=== PATIENT | male | born 1955 | race Caucasian/White ===

== ENCOUNTER 2019-07-15 08:42 | Outpatient (CLI) | payer MEDICARE, BC, SELFPAY ==
[2019-07-15 11:20] LABS: Hemoglobin A1C 6.1 % (4.5-6.2)
== END 2019-07-15 09:02 ==
PROVIDERS: PCP Family Medicine; Visit Provider Family Medicine
DX: R73.01 Impaired fasting glucose (principal)
CPT/HCPCS: 36415; 83036

== ENCOUNTER 2019-08-07 11:03 | Outpatient (CLI) | payer MEDICARE, BC, SELFPAY ==
--- NOTE | 2019-08-07 10:52 | DI.RAD_ITS ---
EXAM: XR KNEE LT 3V AP,LAT,VIKKI CLINICAL HISTORY: eval L knee pain and swelling TECHNIQUE: Three views were obtained. COMPARISON: RIGHT KNEE 3 VIEWS from 08/28/2016 FINDINGS: There is a probable knee joint effusion. Cartilaginous joint spaces appear fairly well maintained. Minimal marginal osteophyte formation of the inferior patella noted. No other significant bony abnor mality seen. IMPRESSION: Minimal degenerative changes, probable joint effusion.
== END 2019-08-07 11:23 ==
PROVIDERS: PCP Family Medicine; Referring Provider Family Medicine; Visit Provider Student in an Organized Health Care Education/Training Program
DX: M25.562 Pain in left knee (principal); M25.462 Effusion, left knee; M17.12 Unilateral primary osteoarthritis, left knee; M23.92 Unspecified internal derangement of left knee
CPT/HCPCS: 20610; 73562; 99214; J1040

== ENCOUNTER 2019-08-07 12:15 | Outpatient (REF) | payer MEDICARE, BC, SELFPAY ==
[2019-08-07 14:28] LABS: Source L KNEE
[2019-08-07 14:29] LABS: Clarity CLEAR
[2019-08-07 14:30] LABS: Mononuclear Cells 98 % (0-0); Nucleated Cells 785 /MM3 (0-0); Polynuclear Cells 2 % (0-0)
== END 2019-08-07 12:35 ==
LOC: LBN 12:15
PROVIDERS: PCP Family Medicine; Visit Provider Student in an Organized Health Care Education/Training Program
DX: M25.462 Effusion, left knee (principal)
CPT/HCPCS: 87070; 87205; 89051; 89060

== ENCOUNTER → 2019-12-25 07:59 | Outpatient (BNVA) | payer MEDICARE, BC, SELFPAY | PROVIDERS: PCP Family Medicine; Referring Provider Family Medicine; Visit Provider Student in an Organized Health Care Education/Training Program | DX: M23.92 Unspecified internal derangement of left knee (principal) | CPT/HCPCS: 99214 ==

== ENCOUNTER 2019-12-30 02:29 | Outpatient (CLI) | payer MEDICARE, BC, SELFPAY ==
--- NOTE | 2019-12-30 06:45 | DI.MRI_ITS ---
EXAM: MR LOWER JOINT LT WO CLINICAL HISTORY: internal derangement lt knee, m23.92., PAIN, SWELLING TECHNIQUE: Multiplanar multisequence MRI was performed. COMPARISON: No exams were available for comparison FINDINGS: MR examination of the knee was performed according to the usual protocol. There is a moderate-sized knee joint effusion. There is increased subcutaneous fat signal over the a nterior portion of the knee consistent with nonspecific edema. Bones: There is mild diffuse abnormal signal in the posterior aspect of the medial femoral condyle an d also in the anterior aspect of the medial femoral condyle centrally. Mildly abnormal signal noted in medial tibial plateau. These findings may represent degenerative or stress related process. No f racture identified. Extensor mechanism: Patella is mildly subluxed laterally. Normal bony signal in the patella except f or minimally abnormal signal adjacent to quadriceps insertion. Quadriceps and patellar tendon show e ssentially normal signal. There are cartilage defects of the patella near the apex and also involving the inferior medial ortiz lar facet. Mild generalized articular cartilage thinning of patellar and trochlear cartilage noted. Patellar retinaculum shows normal signal. Medial tibiofemoral joint: There is an articular cartilage defect of the medial femoral condyle poste riorly measuring up to about 8 millimeters in diameter with minimal exposed bony cortex. There is lombardo bchondral signal abnormality. There is a posterior horn medial meniscal tear which is mildly displac ed, no evidence of a bucket-handle tear. Moderate medial meniscal degeneration noted throughout invo lving the medial meniscus. Lateral tibiofemoral joint: Unremarkable appearance of articular cartilage. Normal lateral meniscus and attachments. No posterolateral corner abnormality. Collateral ligaments: No significant collateral ligament tear. Cruciate ligaments: No cruciate ligament tear. Tendons: No significant tendinopathy or tendon tear. IMPRESSION: Degenerative articular cartilage changes involving patella and medial femoral condyle, please see abo ve discussion. Medial meniscal tear, posterior horn, mildly displaced. DATA REPOSITORY:
== END 2019-12-30 02:49 ==
PROVIDERS: PCP Family Medicine; Visit Provider Student in an Organized Health Care Education/Training Program
DX: M25.562 Pain in left knee (principal); M23.92 Unspecified internal derangement of left knee; M25.462 Effusion, left knee; S83.242A Other tear of medial meniscus, current injury, left knee, initial encounter
CPT/HCPCS: 73721

== ENCOUNTER 2020-07-29 09:37 | Outpatient (CLI) | payer MEDICARE, BC, SELFPAY ==
--- NOTE | 2020-07-29 09:15 | DI.RAD_ITS ---
EXAM: XR KNEE RT 4V AP,LAT,VIKKI,PAT CLINICAL HISTORY: pain in knee. TECHNIQUE: 2D digital imaging was performed. COMPARISON: CR XR KNEE LT 3V AP,LAT,VIKKI from 08/07/2019 FINDINGS: Three views of the right knee reveal no evidence of fracture but there is a significant joint effusio n signifying internal derangement. There are moderate-advanced degenerative narrowing changes in the medial compartment without obvious marginal osteophytes. Lateral compartment exhibits normal height . There are mild degenerative changes also evident in the patellofemoral compartment. Vascular calc ification is noted in the runoff arteries of the calf IMPRESSION: Significant degenerative changes. Also joint effusion. DATA REPOSITORY: RADIATION DOSE DELIVERED:
== END 2020-07-29 09:57 ==
PROVIDERS: PCP Family Medicine; Referring Provider Family Medicine; Visit Provider Student in an Organized Health Care Education/Training Program
DX: M17.11 Unilateral primary osteoarthritis, right knee (principal); M25.461 Effusion, right knee; M23.92 Unspecified internal derangement of left knee; Z79.899 Other long term (current) drug therapy
CPT/HCPCS: 99213; 73564

== ENCOUNTER 2020-08-18 04:26 | Outpatient (CLI) | payer MEDICARE, BC, SELFPAY ==
[2020-08-18 10:28] LABS: Hemoglobin A1C 6.3 % (<5.7)
[2020-08-18 10:38] LABS: BUN 14 mg/dL (7-18); Calcium 9.3 mg/dL (8.5-10.1); Calculated LDL 92 mg/dL (<100); Chloride 103 mmol/L (98-107); Cholesterol 171 mg/dL (<200); Glucose 116 mg/dL (74-106); HDL Cholesterol 53 mg/dL (40-60); Potassium 4.3 mmol/L (3.5-5.1); Sodium 140 mmol/L (136-145); Triglyceride 134 mg/dL (<150)
== END 2020-08-18 04:46 ==
PROVIDERS: PCP Family Medicine; Visit Provider Family Medicine
DX: E78.5 Hyperlipidemia, unspecified (principal); E87.1 Hypo-osmolality and hyponatremia; R73.9 Hyperglycemia, unspecified
CPT/HCPCS: 36415; 80048; 80061; 83036

== ENCOUNTER 2020-08-20 02:21 | Outpatient (CLI) | payer MEDICARE, BC, SELFPAY ==
[2020-08-21 16:57] LABS: COVID-19 RT-PCR Result NEGATIVE (Negative)
== END 2020-08-20 02:41 ==
PROVIDERS: PCP Family Medicine; Visit Provider Student in an Organized Health Care Education/Training Program
DX: Z11.52 Encounter for screening for COVID-19 (principal); Z01.818 Encounter for other preprocedural examination
CPT/HCPCS: U0003

== ENCOUNTER 2020-08-24 10:45 | Day surgery (SDC) | payer MEDICARE, BC, SELFPAY ==
[2020-08-24] VITALS (9 sets, daily range): BP systolic 107–162; BP diastolic 59–98; PULSE 58–69; RESP 12–19; TEMP 35.7–36.6; O2SAT 98–100
--- NOTE | 2020-08-24 11:12 | W.PM.DSUDISC ---
Discharge Plan Disposition Patient Disposition: HOME Condition: Good Discharge Details Reason For Visit: Left knee arthroscopy Attending Provider: Delfin Sanchez Primary Care Provider: Monty Canales Home Meds and New Rx's Prescriptions: New hydrocodone-acetaminophen 5-325 mg tablet 1 tab PO Q8H PRN (Reason: pain) Qty: 6 RF: 0 ibuprofen 600 mg tablet 600 mg PO TID PRN (Reason: pain) Qty: 30 RF: 0 acetaminophen 500 mg capsule 1,000 mg PO Q8H PRN PRNQty: 90 RF: 0 Continued Entyvio 300 mg recon soln 300 mg IV Q8W RF: 0 cholecalciferol (vitamin D3) 2,000 unit tablet 2,000 unit PO DAILY RF: 0 pravastatin 20 mg tablet 20 mg PO QPM Qty: 90 RF: 4 hydrochlorothiazide 12.5 mg tablet 12.5 mg PO DAILY Qty: 90 RF: 4 montelukast 10 mg tablet 10 mg PO DAILY Qty: 90 RF: 3 terbinafine HCl 250 mg tablet 250 mg PO DAILY Qty: 30 RF: 0 terbinafine HCl 250 mg tablet 250 mg PO DAILY Qty: 28 RF: 0 Flovent HFA 110 mcg/actuation HFA aerosol inhaler 1 puff inhalation BID RF: 0 No Action acetaminophen [Tylenol Arthritis Pain] 650 mg tablet extended release 1,300 mg PO BID PRN RF: 0 Discharge Instructions Stand Alone Forms: [facility] Knee Arthroscopy Referrals: Delfin Sanchez MD [ [facility] STAFF PHYSICIAN] - Equipment/Supplies: Partial Weight Bearing Crutches Activity:: Activity as Tolerated Remove Dressings/Wound Care:: 72 hours Shower/Bathe:: 72 hours Diet:: As Tolerated Discharge Orders Discharge Orders: Discharge Order (Routine); Ordered 08/24/20 Ordered By: Satish Álvarez DS: Diagnosis Discharge Diagnosis (1) Internal derangement of left knee: Status: Acute
[2020-08-24] MEDS: Lactated Ringers 1,000 ML 80 ML IV (12:08)
[2020-08-24] MEDS: Bupivacaine 0.5% Pres-Free 30 ML VIAL ×2 (13:16→13:55)
[2020-08-24] MEDS: methylPREDNISolone ACETATE 80 MG/ML VIAL (13:16)
--- NOTE | 2020-08-24 14:42 | W.PM.OP ---
Date of service: 08/24/20 Time of Service: 13:43 Operative Note Operative Note DATE OF PROCEDURE: 08/24/20 PRE-OP DIAGNOSIS: Left Knee Medial Meniscus Tear and Right Knee Osteoarthritis POST-OP DIAGNOSIS: other Left Knee Medial and Lateral Meniscus Tear and Right Knee Osteoarthritis PROCEDURE: Right Knee Corticosteroid Injection, Left Knee Arthroscopic Partial Lateral and Medial Menisectomies SURGEON: Delfin Sanchez ANESTHESIA: spinal ESTIMATED BLOOD LOSS: 0 PATHOLOGY: none sent TOURNIQUET TIME: 0 COMPLICATIONS: None Patient was transported to: PACU Patient's condition: stable Indications: I have seen Christiano in clinic for symptoms of a meniscus tear. This was confirmed based on MRI and exam findings. Nonoperative measures were exhausted but disability and pain persisted. I discussed knee arthroscopy with meniscal intervention with the patient. I reviewed the risks of the procedure to include, but not limited to, bleeding, infection, pain, stiffness, damage to nerves or vessels, recurrence, blood clot. Despite these risks, the patient elected to proceed. Findings: A diagnostic arthroscopy was performed with the following findings: Suprapatellar Pouch: Moderate Inflammatory Changes, No loose bodies Medial Compartment: Complex medial meniscal tear, Tear extends just medial to the root with small peripheral attachment to root intact, Grade II/III chondromalacia of the femur and Grade I of the tibia, No loose bodies Notch: ACL and PCL were intact Lateral Compartment: Complex fraying at the meniscal root, No significant chondromalacia or signs of arthritis, No loose bodies Patellofemoral Compartment: Grade II chondromalacia, No apparent patellar maltracking Procedure Description: Gustavo was greeted in the preoperative holding area where the correct side was identified and marked. The consent was reviewed with the patient and signed. The history and physical was updated. All questions were answered. Gustavo was taken back to the operating room. The patient was placed into the supine position on the operating room table. A nonsterile tourniquet was placed high onto the leg but not used. All bony prominences were well padded. Prophylactic antibiotics in the form of Cefazolin were administered. A timeout to confirm correct identity, side and site, procedure, allergies, anesthesia, and medical concerns was performed. The superolateral border of the patella was identified and marked. The skin was prepped with alcohol. The knee joint was entered without difficulty and the injection, consisting of 8cc of 0.5% Bupivicaine and 80mg of DepoMedrol, was injected without resistance. The left leg was then prepped with Chloraprep and draped in a standard fashion with arthroscopic extremity drape.The leg was placed into a pneumatic leg fisher, [id number]. A standard lateral portal was made at the lateral border of the patella tendon in line with the inferior pole of the patella, soft spot. The skin and deep tissue was incised sharply and the blunt trochar was inserted atraumatically. A diagnostic arthroscopy was performed and the findings are listed above. The suprapatellar pouch had moderate inflammatory disease. The patellofemoral articulation showed Grade II chondromalacia as well as good tracking. The lateral gutter had no loose bodies and the medial gutter had no loose bodies. The knee was brought into some valgus stress in extension to open the medial compartment. A medial portal was made, localized by a spinal needle. The portal was created with an #11 blade through skin and capsule under direct visualization avoiding any meniscal injury. A probe was then inserted into the medial compartment. The medial compartment was fully inspected. The chondral surface of the tibia showed Grade I/II chondromalacia and the surface of the femur showed Grade II/III chondromalacia, mostly centrally. The medial meniscus had a complex tear witha primary radial component just medial to the posterior meniscal root attachment. This involved the central 2/3 of the meniscus with some peripheral fibers still attached between the horn and the root. After evaluation, the meniscus was debrided down to a stable base using a series of biters and arthroscopic avery. It was probed afterwards to confirm that the tear had been removed and the meniscus was stable. The notch was then inspected which showed an intact ACL and an intact PCL. The leg was then brought into a figure of 4 position. The lateral compartment was fully inspected with the arthroscope and a probe. The chondral surface of the lateral femur showed no significant chondromalacia. The chondral surface of the lateral tibia showed no significant chondromalacia. The lateral meniscus had some fraying and complex tearing at the root. It did not destabilize the remainder of the meniscus. After evaluation, the meniscus was debrided down to a stable base using a series of biters and arthroscopic avery. It was probed afterwards to confirm that the tear had been removed and the meniscus was stable. The arthroscope was brought back into the suprapatellar pouch and the leg was in full extension. The knee was thoroughly irrigated with the arthroscopic fluid on high flow and pressure. Inflow was stopped and excess fluid was removed. The wounds were closed with 4-0 Nylon. They were dressed with Xeroform, 4x4 gauze, ABD pad, Kerlix and an ANDER wrap. A cryo-cuff was applied. The patient tolerated the procedure well and was returned to the Same Day Surgery area in a stable condition suffering no known complication.
== END 2020-08-24 16:30 | disposition home or self-care (01) ==
PROVIDERS: PCP Family Medicine; Visit Provider Student in an Organized Health Care Education/Training Program
PROC: (CPT 29870; principal; 2020-08-24 13:45)
PROC: (CPT 29880; 2020-08-24 13:45)
DX: S83.232A Complex tear of medial meniscus, current injury, left knee, initial encounter (principal); S83.272A Complex tear of lateral meniscus, current injury, left knee, initial encounter; M17.11 Unilateral primary osteoarthritis, right knee; X58.XXXA Exposure to other specified factors, initial encounter; M94.262 Chondromalacia, left knee
CPT/HCPCS: 29880; 20610; J0690; J1040; J1885; J2001; J2250; J2405

== ENCOUNTER → 2020-09-09 09:30 | Outpatient (BNVA) | payer MEDICARE, BC, SELFPAY | PROVIDERS: PCP Family Medicine; Referring Provider Family Medicine; Visit Provider Student in an Organized Health Care Education/Training Program | DX: Z47.89 Encounter for other orthopedic aftercare (principal) ==

== ENCOUNTER → 2021-01-04 07:57 | Outpatient (BNVA) | payer MEDICARE, BC, SELFPAY | PROVIDERS: PCP Family Medicine; Referring Provider Family Medicine; Visit Provider Physician Assistant | DX: M17.11 Unilateral primary osteoarthritis, right knee (principal) | CPT/HCPCS: 20610; J1040 ==

== ENCOUNTER 2021-02-21 10:22 | Outpatient (CLI) | payer MEDICARE, BC, SELFPAY ==
--- NOTE | 2021-02-21 10:00 | DI.RAD_ITS ---
Exam(s) XR HIP RT COMPLETE AP PELVIS EXAM: XR HIP RT COMPLETE AP PELVIS CLINICAL HISTORY: right hip pain. TECHNIQUE: 2D digital imaging was performed. COMPARISON: No exams were available for comparison FINDINGS: No evidence of pelvic nor hip fracture. Mild degenerative changes in the left hip are noted. Minima l degenerative changes right hip noted. No osseous. IMPRESSION: DATA REPOSITORY: RADIATION DOSE DELIVERED:
== END 2021-02-21 10:23 | disposition home or self-care (01) ==
LOC: DIORS 10:22
PROVIDERS: PCP Family Medicine; Referring Provider Family Medicine; Visit Provider Student in an Organized Health Care Education/Training Program
DX: M25.551 Pain in right hip (principal); M17.11 Unilateral primary osteoarthritis, right knee; M16.11 Unilateral primary osteoarthritis, right hip
CPT/HCPCS: 99213; 73502

== ENCOUNTER 2021-04-05 10:20 | Outpatient (CLI) | payer MEDICARE, BC, SELFPAY ==
--- NOTE | 2021-04-05 09:30 | DI.RAD_ITS ---
Exam(s) XR STANDING ALIGNMENT EXAM: XR STANDING ALIGNMENT CLINICAL HISTORY: preop. TECHNIQUE: 2D digital imaging was performed. Standing AP views were performed from the pelvis throu gh the ankles. COMPARISON: No exams were available for comparison FINDINGS: BONES: No acute fracture is present. No bony destructive lesion is seen. JOINTS: Knees: Severe degenerative changes medial femoral tibial joint right knee causing mild varus angulation.. Mild degenerative changes left knee. The ankle and hip joints are unremarkable. SOFT TISSUE: Normal. IMPRESSION: Severe degenerative changes medial femoral tibial joint right knee. No significant leg length discre pancy. DATA REPOSITORY: RADIATION DOSE DELIVERED:
== END 2021-04-05 10:21 | disposition home or self-care (01) ==
LOC: DIORS 10:20
PROVIDERS: PCP Family Medicine; Referring Provider Family Medicine; Visit Provider Physician Assistant Surgical
DX: M16.11 Unilateral primary osteoarthritis, right hip (principal); Z01.818 Encounter for other preprocedural examination; M17.11 Unilateral primary osteoarthritis, right knee
CPT/HCPCS: 77073

== ENCOUNTER 2021-04-11 03:39 | Outpatient (CLI) | payer MEDICARE, BC, SELFPAY ==
[2021-04-11 10:23] LABS: Source Nasal/Nares
[2021-04-11 12:50] LABS: COVID-19 PCR Negative (Negative)
== END 2021-04-11 03:40 | disposition home or self-care (01) ==
LOC: LBO 03:39
PROVIDERS: PCP Family Medicine; Visit Provider Student in an Organized Health Care Education/Training Program
DX: Z20.822 Contact with and (suspected) exposure to COVID-19 (principal); Z01.818 Encounter for other preprocedural examination
CPT/HCPCS: 36415; 80048; 85027; 87635

== ENCOUNTER 2021-04-11 04:08 | Outpatient (CLI) | payer MEDICARE, BC, SELFPAY ==
[2021-04-11 08:21] LABS: HCT 44.6 % (40.0-50.0); HGB 14.6 g/dL (13.5-17.5); MCH 29.3 pg (27.0-33.0); MCHC 32.7 % (32.0-36.0); MCV 89.6 fL (80-95); MPV 8.8 fL (8.0-11.0); Platelet Count 176 10^3/uL (130-400); RBC 4.98 10^6/uL (4.36-5.78); RDW 12.5 % (11.8-14.1); RDW-SD 41.1 fL; WBC 5.83 10^3/uL (4.4-10.8)
[2021-04-11 09:17] LABS: BUN 17 mg/dL (7-18); CREATININE 1.1 mg/dL (0.70-1.30); Calcium 9.1 mg/dL (8.5-10.1); Chloride 102 mmol/L (98-107); Glucose 179 mg/dL (74-106); Potassium 3.9 mmol/L (3.5-5.1); Sodium 140 mmol/L (136-145)
== END 2021-04-11 04:09 | disposition home or self-care (01) ==
LOC: LBO 04:09
PROVIDERS: PCP Family Medicine; Visit Provider Student in an Organized Health Care Education/Training Program
DX: M25.551 Pain in right hip (principal); M16.11 Unilateral primary osteoarthritis, right hip; Z01.818 Encounter for other preprocedural examination; Z01.812 Encounter for preprocedural laboratory examination
CPT/HCPCS: 36415; 80048; 85027

== ENCOUNTER 2021-04-12 05:58 | Day surgery (SDC) | payer MEDICARE, BC, SELFPAY ==
[2021-04-12] VITALS (11 sets, daily range): BP systolic 105–159; BP diastolic 56–98; PULSE 49–59; RESP 11–20; TEMP 36.1–36.6; O2SAT 94–99; BMI 31.8
[2021-04-12] MEDS: Celecoxib 200 MG CAP 400 MG PO (06:32)
[2021-04-12] MEDS: Gabapentin 300 MG CAP PO (06:32)
[2021-04-12] MEDS: Acetaminophen 500 MG TAB 1000 MG PO (06:32)
[2021-04-12] MEDS: Lactated Ringers 1,000 ML 80 ML IV (06:40)
--- NOTE | 2021-04-12 07:00 | DI.RAD_ITS ---
Exam(s) XR HIP RT IN OR EXAM: XR HIP RT IN OR CLINICAL HISTORY: RIGHT HIP ARTHRITIS. TECHNIQUE: 2D and realtime digital imaging was performed. COMPARISON: No exams were available for comparison FINDINGS: Fluoroscopy was provided for Dr. Sanchez for guidance with performing a right hip injection. Please see procedure note for details. Fluoro time 5.9 seconds RADIATION DOSE DELIVERED: Ka,r= 0.78 mGy
--- NOTE | 2021-04-12 07:02 | W.ANESPRE ---
General Info Date of Service Date Performed: 04/12/21 Height: 6 ft 2 in Weight: 112.7 kg Body Mass Index (BMI): 31.8 Surgical Procedure: Operation Date: 04/12/21 08:10 Proposed Procedures Side Surgeon p Knee Total Arthroplasty Right Delfin Sanchez MD Meds Allergies and Home Medications Allergies Allergy/AdvReac Type Severity Reaction Status Date / Time Penicillins Allergy Unknown RASH, SOB Verified 04/12/21 06:09 Home Medication Medication Instructions Recorded vedolizumab 300 mg intravenous 300 mg IV Q8W 05/31/18 solution cholecalciferol (vitamin D3) 50 2,000 unit PO DAILY 08/12/19 mcg (2,000 unit) tablet fluticasone propionate 110 1 puff INHALATION BID 07/29/20 mcg/actuation HFA aerosol inhaler hydrochlorothiazide 12.5 mg tablet 12.5 mg PO DAILY #90 tab-cap 08/13/20 montelukast 10 mg tablet 10 mg PO DAILY #90 tab 08/13/20 pravastatin 20 mg tablet 20 mg PO QPM #90 tab-cap 08/13/20 fluticasone propionate 1 spray INTRANASAL DAILY 08/24/20 terbinafine HCl 250 mg tablet 250 mg PO DAILY #30 tab 04/06/21 acetaminophen [Tylenol Extra 500 mg PO Q6H PRN #90 tab 04/12/21 Strength] aspirin 81 mg PO BID #60 tab 04/12/21 celecoxib [Celebrex] 200 mg PO BID #60 cap 04/12/21 gabapentin 300 mg PO QHS #14 cap 04/12/21 oxycodone 5 mg PO Q4H PRN #18 tab 04/12/21 pantoprazole [Protonix] 40 mg PO DAILY #30 tab 04/12/21 Current Visit Medications: Current Medications Generic Name Dose Route Start Last Admin Trade Name Freq PRN Reason Stop Dose Admin Acetaminophen 1,000 mg 04/12/21 06:00 04/12/21 06:32 Acetaminophen 500 Mg Tab PO 04/12/21 16:00 1,000 mg PREOP WALTER Administration Celecoxib 400 mg 04/12/21 06:00 04/12/21 06:32 Celecoxib 200 Mg Cap PO 04/12/21 16:00 400 mg PREOP WALTER Administration Gabapentin 300 mg 04/12/21 06:00 04/12/21 06:32 Gabapentin 300 Mg Cap PO 04/12/21 16:00 300 mg PREOP WALTER Administration Ringer's Solution 1,000 mls @ 80 mls/hr 04/12/21 06:00 04/12/21 06:40 IV 05/11/21 23:59 80 mls/hr INFUSION WALTER Administration Cefazolin Sodium 2,000 mg/ 100 mls @ 200 mls/hr 04/12/21 06:00 Sodium Chloride IVPB 04/12/21 16:00 PREOP WALTER Tranexamic Acid 1,000 mg/ 60 mls @ 360 mls/hr 04/12/21 06:00 Sodium Chloride IVPB 04/12/21 18:00 PREOP WALTER Tranexamic Acid 1,000 mg/ 60 mls @ 360 mls/hr 04/12/21 06:00 Sodium Chloride IVPB 04/12/21 18:00 DIRECTED WALTER IV Miscellaneous Supplies 1 each 04/12/21 06:00 Iv Access IV 05/11/21 23:59 DIRECTED WALTER Sodium Chloride 0 ml 04/12/21 06:00 Normal Saline Flush 10 Ml Syr IV 05/11/21 23:59 PRN PRN Sodium Chloride 0 ml 04/12/21 06:00 Normal Saline 10 Ml Vial IJ 05/11/21 23:59 DIRECTED PRN Sterile Water 0 ml 04/12/21 06:00 Water,Injection,Sterile 10 Ml Vial IJ 05/11/21 23:59 DIRECTED PRN PFSH Active Problems Active Problems: Problem Status Onset Code Heart murmur R01.1 Degenerative joint disease of right hip M16.11 Sensorineural hearing loss of both ears H90.3 Hearing loss H91.90 Stress due to spouse with dementia Z63.79 S/P left knee arthroscopy 08/24/20 Z98.890 Osteoarthritis of right knee M17.11 Family history of Lowery syndrome 07/28/14 Z80.0 Migraine G43.909 Chronic cough R05 Atypical pneumonia J18.9 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 Proctitis 08/27/17 K62.89 Primary osteoarthritis of right knee 08/28/16 M17.11 Lung nodule seen on imaging study 09/29/14 R91.1 Knee pain M25.569 Impaired fasting glucose R73.01 Hyperlipidemia E78.5 Generalized osteoarthrosis M15.9 Generalized osteoarthrosis M15.9 Essential hypertension 06/30/13 I10 Diverticulosis 09/08/14 K57.90 Colitis 07/10/17 K52.9 Medical History Medical History (Updated 04/12/21 @ 07:04 by Mayelin Schroeder RN) Asthma Atypical pneumonia Chronic cough short course of ABic; if not cleared, suggest inhaled steroid (he is leary of po steroid, due to eye disease) Degenerative joint disease of right hip Tobacco Smoking/Tobacco Use Status: Never Passive smoking exposure: Yes Second hand exposure: Yes Alcohol Alcohol Intake: current Alcohol intake frequency: a few times a month Alcohol type: beer Substance Use Substance use: Never Substance use type: does not use Vital Signs and Lab Results Vital Signs Most Recent Vital Signs in EMR: Most Recent Vital Signs Temp Pulse Resp BP Pulse Ox 36.6 C 59 L 20 144/93 H 95 04/12/21 06:13 04/12/21 06:13 04/12/21 06:13 04/12/21 06:13 04/12/21 06:13 Lab Results Blood Type / Crossmatch: No Data to Display Complete Blood Count: White Blood Count 5.83 10^3/uL (4.4-10.8) 04/11/21 08:15 04/11/21 Red Blood Count 4.98 10^6/uL (4.36-5.78) 04/11/21 08:15 04/11/21 Hemoglobin 14.6 g/dL (13.5-17.5) 04/11/21 08:15 04/11/21 Hematocrit 44.6 % (40.0-50.0) 04/11/21 08:15 04/11/21 Platelet Count 176 10^3/uL (130-400) 04/11/21 08:15 04/11/21 Complete Metabolic Panel: Sodium Level 140 mmol/L (136-145) 04/11/21 08:15 04/11/21 Potassium Level 3.9 mmol/L (3.5-5.1) 04/11/21 08:15 04/11/21 Chloride Level 102 mmol/L (98-107) 04/11/21 08:15 04/11/21 Carbon Dioxide Level 27.0 mmol/L (21.0-32.0) 04/11/21 08:15 04/11/21 Blood Urea Nitrogen 17 mg/dL (7-18) 04/11/21 08:15 04/11/21 Creatinine 1.1 mg/dL (0.70-1.30) 04/11/21 08:15 04/11/21 Estimated GFR/1.73 m2 >= 60.00 (mL/min/1.73m2) 04/11/21 08:15 04/11/21 Calcium Level 9.1 mg/dL (8.5-10.1) 04/11/21 08:15 04/11/21 Glucose Level 179 mg/dL (74-106) H 04/11/21 08:15 04/11/21 Liver Function Panel: No Data to Display Coagulation Panel: No Data to Display Cardiac Panel: No Data to Display Arterial Blood Gas: No Data to Display Venous Blood Gas: No Data to Display Pancreas Panel: No Data to Display Thyroid Panel: No Data to Display Infectious Disease: Coronavirus (COVID-19)(PCR) Negative (Negative) 04/11/21 08:20 04/11/21 Coronavirus 2019 Source Nasal/Nares 04/11/21 08:20 04/11/21 Blood Cultures: No Data to Display Toxicology Panel: No Data to Display Anesthesia Assessment and Plan Anesthesia History Personal History: No History of Anesthesia Complications Family History: No Family History of Anesthesia Complications Exercise Tolerance Exercise Tolerance: Metabolic Equivalents>4 Pertinent Negatives Pertinent Negatives: No Symptoms of GERD Cardiac & Pulmonary Exam Cardiac Exam: Normal S1/S2 Heart Sounds and Heart Murmur Present (Benign murmur, chart reviewed, cleared by primary care) Pulmonary Exam: Clear Bilateral Breath Sounds Airway Exam Known Difficult Airway: No Mallampati Class: 2 Mouth Opening: Normal (> 3cm) Thyromental Distance: Greater than 3 cm Neck Range of Motion: Full ROM Neck Circumference: Normal Teeth Condition: Normal Dentition ASA Classification ASA Score: ASA 2 Emergency Case?: No NPO Status NPO Status: NPO Clears >2 hours, Solids >8 hours Anesthesia Plan Resuscitation Status: Full Code Anesthesia Technique: Spinal Anesthesia Airway Planned: Natural Airway Pain Management: Surgeon and patient request nerve block Monitors Used: Standard Monitors
--- NOTE | 2021-04-12 07:36 | W.PM.DSUDISC ---
Documented by User: LISSA Burkett 04/12/21 07:40 Discharge Plan Disposition Patient Disposition: HOME Condition: Stable Discharge Details Reason For Visit: Right TKA and Right Hip Injection Attending Provider: Delfin Sanchez Primary Care Provider: Monty Canales Home Meds and New Rx's Prescriptions: New celecoxib [Celebrex] 200 mg capsule 200 mg PO BID Qty: 60 RF: 0 aspirin 81 mg tablet,delayed release (DR/EC) 81 mg PO BID Qty: 60 RF: 0 acetaminophen [Tylenol Extra Strength] 500 mg tablet 500 mg PO Q6H PRNQty: 90 RF: 0 pantoprazole [Protonix] 40 mg tablet,delayed release (DR/EC) 40 mg PO DAILY Qty: 30 RF: 0 gabapentin 300 mg capsule 300 mg PO QHS Qty: 14 RF: 0 oxycodone 5 mg tablet 5 mg PO Q4H PRNQty: 18 RF: 0 Continued Entyvio 300 mg recon soln 300 mg IV Q8W RF: 0 cholecalciferol (vitamin D3) 2,000 unit tablet 2,000 unit PO DAILY RF: 0 pravastatin 20 mg tablet 20 mg PO QPM Qty: 90 RF: 4 hydrochlorothiazide 12.5 mg tablet 12.5 mg PO DAILY Qty: 90 RF: 4 montelukast 10 mg tablet 10 mg PO DAILY Qty: 90 RF: 3 Flovent HFA 110 mcg/actuation HFA aerosol inhaler 1 puff inhalation BID RF: 0 terbinafine HCl 250 mg tablet 250 mg PO DAILY Qty: 30 RF: 0 fluticasone propionate 50 mcg/actuation [place],Suspension 1 spray INTRANASAL DAILY RF: 0 Discontinued acetaminophen [Tylenol Arthritis Pain] 650 mg tablet extended release 1,300 mg PO BID PRN RF: 0 acetaminophen 500 mg capsule 1,000 mg PO Q8H PRN PRNQty: 90 RF: 0 Discharge Instructions Additional Instructions: Total Knee Discharge Instructions Activity: The most important activity is to walk. You should try to take short walks a few times a day. It is important that when resting you work on keeping the knee straight. Avoid putting a pillow behind the knee as this will encourage flexion. Work on range of motion exercises as provided by Physical Therapy. If you have the [employer] bike coming, this will be your primary tool for exercise after the knee replacement. You should use it and follow the directions for the knee. Utilize the other exercises sparingly based on your symptoms. - Start outpatient physical therapy within 2 weeks. - You should wear the RUPERTO hose on both legs for 2 weeks. You may remove these at night. You may also use any compression sock in place of the RUPERTO hose. - Utilize [employer] to review exercises, see videos on exercises and obtain basic information pertaining to your surgery and your recovery. Dressing: Remove the Shade wrap by 2 days after your surgery and put on the RUPERTO stocking given to you from the hospital. Keep the surgical dressing (underneath the SHADE wrap) in place for at least one week. After the first week it may be removed and replaced with light gauze and tape or nothing. The wound and dressing may get wet after 3 days but avoid soaking the dressing or otherwise it will need to be changed. Many people prefer covering the dressing with cling wrap (saran wrap) to minimize it from getting soaked. If it gets wet, just pat dry. If it starts to peel off then it will need to be changed. Medications: - You should take Tylenol and anti-inflammatory Celebrex as your primary pain control medications. If the Celebrex is too expensive or not covered, please call the office for another alternative (Advil/Ibuprofen or Naproxen/Aleve) - You have been prescribed a stronger pain medication Oxycodone for breakthrough pain, take as needed as prescribed. - You have also been prescribed a stomach acid reduction agent Pantoprozole to help reduce stomach acid and reflux. - You have been prescribed Gabapentin to take at night for restlessness and nerve pain. - You will be taking Aspirin 81mg twice a day for DVT prevention unless instructed otherwise. - If you have constipation you should take Colace or Miralax (both [id number]). It takes most people 3-4 days to have a bowel movement. Follow-up: 2 weeks If you have any acute concerns or questions, please do not hesitate to contact the office at [phone]. You may contact Dr. Sanchez with any questions after hours through the hospital at [phone] or on his cell phone at [phone]. Stand Alone Forms: Anesthesia Discharge Inst. Referrals: Delfin Sanchez MD [ [facility] STAFF PHYSICIAN] - Equipment/Supplies: Walker Activity:: Activity as Tolerated Remove Dressings/Wound Care:: Do Not Remove Shower/Bathe:: 72 hours Diet:: As Tolerated Discharge Orders Discharge Orders: Discharge Order (Routine); Ordered 04/12/21 Ordered By: Reanna Saleem DS: Diagnosis Discharge Diagnosis (1) Osteoarthritis of right knee: Status: Acute Documented by User: Delfin Sanchez MD 04/12/21 14:50 Discharge Plan Disposition Patient Disposition: HOME Condition: Stable Discharge Details Reason For Visit: Right TKA and Right Hip Injection Attending Provider: Delfin Sanchez Primary Care Provider: Monty Canales Home Meds and New Rx's Prescriptions: New celecoxib [Celebrex] 200 mg capsule 200 mg PO BID Qty: 60 RF: 0 aspirin 81 mg tablet,delayed release (DR/EC) 81 mg PO BID Qty: 60 RF: 0 acetaminophen [Tylenol Extra Strength] 500 mg tablet 500 mg PO Q6H PRNQty: 90 RF: 0 pantoprazole [Protonix] 40 mg tablet,delayed release (DR/EC) 40 mg PO DAILY Qty: 30 RF: 0 gabapentin 300 mg capsule 300 mg PO QHS Qty: 14 RF: 0 oxycodone 5 mg tablet 5 mg PO Q4H PRNQty: 18 RF: 0 Continued Entyvio 300 mg recon soln 300 mg IV Q8W RF: 0 cholecalciferol (vitamin D3) 2,000 unit tablet 2,000 unit PO DAILY RF: 0 pravastatin 20 mg tablet 20 mg PO QPM Qty: 90 RF: 4 hydrochlorothiazide 12.5 mg tablet 12.5 mg PO DAILY Qty: 90 RF: 4 montelukast 10 mg tablet 10 mg PO DAILY Qty: 90 RF: 3 Flovent HFA 110 mcg/actuation HFA aerosol inhaler 1 puff inhalation BID RF: 0 terbinafine HCl 250 mg tablet 250 mg PO DAILY Qty: 30 RF: 0 fluticasone propionate 50 mcg/actuation [place],Suspension 1 spray INTRANASAL DAILY RF: 0 Discontinued acetaminophen [Tylenol Arthritis Pain] 650 mg tablet extended release 1,300 mg PO BID PRN RF: 0 acetaminophen 500 mg capsule 1,000 mg PO Q8H PRN PRNQty: 90 RF: 0 Discharge Instructions Additional Instructions: Total Knee Discharge Instructions Activity: The most important activity is to walk. You should try to take short walks a few times a day. It is important that when resting you work on keeping the knee straight. Avoid putting a pillow behind the knee as this will encourage flexion. Work on range of motion exercises as provided by Physical Therapy. If you have the [employer] bike coming, this will be your primary tool for exercise after the knee replacement. You should use it and follow the directions for the knee. Utilize the other exercises sparingly based on your symptoms. - Start outpatient physical therapy within 2 weeks. - You should wear the RUPERTO hose on both legs for 2 weeks. You may remove these at night. You may also use any compression sock in place of the RUPERTO hose. - Utilize [employer] to review exercises, see videos on exercises and obtain basic information pertaining to your surgery and your recovery. Dressing: Remove the Shade wrap by 2 days after your surgery and put on the RUPERTO stocking given to you from the hospital. Keep the surgical dressing (underneath the SHADE wrap) in place for at least one week. After the first week it may be removed and replaced with light gauze and tape or nothing. The wound and dressing may get wet after 3 days but avoid soaking the dressing or otherwise it will need to be changed. Many people prefer covering the dressing with cling wrap (saran wrap) to minimize it from getting soaked. If it gets wet, just pat dry. If it starts to peel off then it will need to be changed. Medications: - You should take Tylenol and anti-inflammatory Celebrex as your primary pain control medications. If the Celebrex is too expensive or not covered, please call the office for another alternative (Advil/Ibuprofen or Naproxen/Aleve) - You have been prescribed a stronger pain medication Oxycodone for breakthrough pain, take as needed as prescribed. - You have also been prescribed a stomach acid reduction agent Pantoprozole to help reduce stomach acid and reflux. - You have been prescribed Gabapentin to take at night for restlessness and nerve pain. - You will be taking Aspirin 81mg twice a day for DVT prevention unless instructed otherwise. - If you have constipation you should take Colace or Miralax (both [id number]). It takes most people 3-4 days to have a bowel movement. Follow-up: 2 weeks If you have any acute concerns or questions, please do not hesitate to contact the office at [phone]. You may contact Dr. Sanchez with any questions after hours through the hospital at [phone] or on his cell phone at [phone]. Stand Alone Forms: Anesthesia Discharge Inst. Referrals: Delfin Sanchez MD [ [facility] STAFF PHYSICIAN] - Equipment/Supplies: Walker Activity:: Activity as Tolerated Remove Dressings/Wound Care:: Do Not Remove Shower/Bathe:: 72 hours Diet:: As Tolerated Discharge Orders Discharge Orders: Discharge Order (Routine); Ordered 04/12/21 Ordered By: Reanna Saleem
[2021-04-12] MEDS: ceFAZolin 2,000 MG in Normal Saline 100 ML 200 MG IVPB (07:39)
[2021-04-12] MEDS: methylPREDNISolone ACETATE 80 MG/ML VIAL (07:59)
--- NOTE | 2021-04-12 08:10 | W.ANESNERVE ---
Nerve Block Single Injection Procedure Date and Time Date Performed: 04/12/21 Procedure Start: 07:24 Location Where Procedure Performed Procedure Location: PACU Reason Performed: Postoperative Analgesia Requesting Provider: Delfin Sanchez Timeout Performed Timeout Performed: Yes Monitoring Used ECG, Blood Pressure and SpO2 Sterility Sterility: Hand Hygiene, Surgical Cap, Surgical Mask, Sterile Gloves and Chlorhexidine Sedation Given During Procedure Sedation Given (Indicate Dose Given): Versed IV Dose:: 2 mg Patient Mental Status Patient Mental Status: Sedate with meaningful communication Nerve Block 1st Nerve Block: Laterality: Right Block Type: Adductor Canal Needle / Catheter Used: 100mm SonoPlex II Local Anesthetic Bolus (Indicate Dose Given): Lidocaine used for local infiltration of skin, Injected in 3-5ml increments after negative blood aspiration and Bupivacaine 0.25% Dose:: 15 ml Additives (Indicate Dose Given): None Ultrasound: Sterile probe cover and gel used Ultrasound Image Saved?: Yes Nerve Stimulator: Not Used Paresthesia: None Procedure Tolerated: No Complications Procedure Outcome: Successful Performed By: Michael Phipps Supervised By: Aleena Castro
[2021-04-12] MEDS: Bupivacaine 0.25% Pres-Free 30 ML VIAL (08:51)
[2021-04-12] MEDS: Normal Saline 20 ML VIAL (08:51)
[2021-04-12] MEDS: Ketorolac 30 MG/ML VIAL (08:51)
--- NOTE | 2021-04-12 10:32 | W.ANESPOSTOP ---
Postoperative Evaluation Date, Time and Location Date Performed: 04/12/21 Time Performed: 10:32 Patient Location: Day Surgery Unit Vital Signs Most Recent Imported Vital Signs: Most Recent Vital Signs Temp Pulse Resp BP Pulse Ox 36.5 C 53 L 12 125/78 97 04/12/21 09:58 04/12/21 09:58 04/12/21 09:58 04/12/21 09:58 04/12/21 09:58 Pain Score Most Recent Pain Score: Most Recent Pain Score Pain Level 0 04/12/21 09:58 Assessment Mental Status: Awake (Alert & Oriented to Patient Baseline) Airway and Respiratory Function: Patent airway with normal (patient baseline) respiratory exam Cardiovascular Function: Hemodynamically Stable Hydration Status: Adequately Hydrated Nausea & Vomiting: No Nausea or Vomiting Pain: Pt. Denies Any Pain Peripheral Nerve Block: Regional nerve block not resolved at time of post operative discharge
[2021-04-12] MEDS: oxyCODONE 5 MG TAB PO ×2 (10:39→11:06)
--- NOTE | 2021-04-12 10:57 | ROE_ITS ---
Date of service: 04/12/21 Time of Service: 09:37 Operative Note Operative Note DATE OF PROCEDURE: 04/12/21 PRE-OP DIAGNOSIS: Right Knee Osteoarthritis; Right Hip Osteoarthritis POST-OP DIAGNOSIS: same PROCEDURE: Right Total Knee Replacement; Right Hip Injection with Fluorosopic Guidance SURGEON: Delfin Sanchez ANALYTICAL CHEMIST: Reanna Saleem Refer to Anesthesia Record ESTIMATED BLOOD LOSS: 200 PATHOLOGY: none sent TOURNIQUET TIME: 0 COMPLICATIONS: None Patient was transported to: PACU Patient's condition: stable Implants: 1. Depuy Attune Cementless Cruciate Retaining Femoral Component, Size 8 2. Depuy Attune Cementless Rotating Platform Tibial Component, Size 8 3. Depuy Attune 8x6 CR/RP Poly 4. Depuy Attune Patellar Component, Size 41 Indications: I have seen Gustavo in clinic for symptoms of knee arthritis, confirmed with radiographic findings. Gustavo has exhausted nonoperative methods and was having significant limitations in daily function and desired better function and less pain. I discussed the technical details of a knee replacement. I explained the risks of the procedure to include, but not limited to, bleeding, infection, pain, stiffness, fracture, damage to nerves and vessels, damage to muscles and tendons, loosening, need for repeat procedure, blood clot and cardiopulmonary demise. Despite these risks, he elected to proceed. Findings: There was significant signs of arthritis throughout the knee, most concentrated in the medial tibia and femur. Procedure Description: Gustavo was greeted in the preoperative holding area where the correct side was identified and marked. The consent was reviewed with the patient and signed. The history and physical was updated. All questions were answered. Preoperative medications were administered: Acetaminophen 1000mg, Celebrex 400mg, and Gabapentin 300mg. An adductor canal block was then administered by the anesthesia team in the PACU. Gustavo was taken back to the operating room. A spinal anesthestic was then administered. The patient was placed into the supine position on the operating room table. A timeout to confirm correct identity, side and site, procedure, allergies, anesthesia, and medical concerns was performed. Then performed the hip injection. Fluoroscopy was utilized to identify the starting point. This area was then prepped with ChloraPrep. Using a spinal needle, I was able to enter the hip joint from an anterior lateral approach. The needle was in contact with bone and appropriate positioning was confirmed with the x-ray. I then easily injected 5 cc of 0.25% bupivacaine with 80 mg of Depo-Medrol. A Band-Aid was applied. Posts were placed for positioning during the procedure. All bony prominences were well padded. Prophylactic antibiotics in the form of Cefazolin were administered. 1g of Tranxemic Acid was given intravenously within 30 minutes of incision. The right leg was then prepped with Chloraprep and draped in a standard fashion with impervious stockinette. A second prep with Chloraprep was performed prior to application of Iodine impregnated skin protection. With the knee in some flexion, a midline incision was made overlying the knee. Full thickness skin flaps were raised once the extensor mechanism was encountered. These were raised medially and laterally. Any bleeding was controlled with electrocautery. Once the extensor mechanism was fully exposed, a medial parapatellar arthrotomy was performed in a flexed position. All bleeding from the arthrotomy and the geniculate arteries was coagulated. A medial subperiosteal peel was performed with electrocautery to the midcoronal plane. The fat pad was removed while keeping the patellar tendon protected. The anterior distal femur synovium was removed for later visualization. The ACL and PCL were resected and the anterior horn of the lateral meniscus was transected. The knee was then flexed with the patella everted. Large osteophytes from the tibia were removed. Large osteophytes from the femur were removed. Using a step drill, and based on preoperative templating, the femoral canal was entered. This was done with a step drill without any difficulty. The intra medullary distal femoral cut guide was inserted, set to a 4 degree valgus cut and 9mm cut thickness. The distal femoral cut guide was then held in position and pinned. With the soft tissues protected, the distal cut was performed. This was passed over a few times to ensure a planar cut. I then turned attention to the tibia. The extramedullary guide was placed onto the leg. The distal aspect was slid medial to adjust for position of center of ankle and stay in line with shaft of the tibia. Approximately 3-5 degrees of posterior slope was kept in the proximal cutting guide. The center of the guide was aligned with the PCL. The stylus was used to assess cut thickness. The medial side, most involved side, was set for a 4mm cut. This was then held in position and pinned into place w ith 2 additional pins and a cross pin for stability. The medial and lateral collateral ligaments were protected and the cut was performed. With this completed, it was assessed and noted to be of appropriate dimensions. The guide was removed. A spacer block was inserted and the knee was brought into extension. The 6mm spacer block provided full extension, without hyperextension and with stability of both the medial and lateral collateral ligaments was assessed. The pins from the femur and the tibia were then removed. The distal femur was then sized. The anterior stylus was placed onto the lateral ridge of the anterior femur. This indicated a size 8 femur. The external rotation of the guide was adjusted to 3 degrees to match the epicondylar axis, perpendicular to Mor?s line. The 4-in-1 cutting guide was the placed. The posterior medial femur cut was evaluated and appeared of good thickness. The spacer block was inserted underneath the cutting guide and stability was confirmed in 90 degrees of flexion. An matt wing was used to confirm appropriate position of the anterior cut to avoid notching. This cutting guide was ensured to be flush on the cut surface and then pinned into place with headed pins. While protecting the soft tissues, quad tendon, and collateral ligaments, the anterior and posterior cuts were performed with a saw. The central two pins were removed and the posterior and anterior chamfers were cut next. The notch-cutting guide was placed. This was pinned to lateralize the femoral component as much as possible while keeping it flush on the cut surface. This was then pinned into position. A reciprocating saw was used to make the notch cut. A rasp smoothed the cut surfaces. The medial and lateral menisci were removed. A trial femoral component was then inserted, impacted down to the cut surfaces, and the lug holes were drilled. A provisional trial tibial component was placed and the knee was brought through range of motion. There was noted to be excellent extension and flexion. There was no significant instability. The patella was tracking without thumbs. A size 6mm polyethylene component provided the best range of motion and stability with less than 2mm gapping with medial and lateral stress and full extension without significant hyperextension. The tibial cut surface was fully exposed. The tibia was then sized as a 8. The tibia had been previously marked during trialing to correspond to the center of the tibial component to help with rotation. The trial was aligned to this jenn, approximately rotated to the medial 3rd of the tibial tubercle. The trial was pinned into place. The tibia was prepared with a reamer and a keel punch and lug holes. The knee was then brought into extension and the patella was measured as 28mm. Using the patellar clamp and cut guide, this was resected to a flat surface with at least 13mm of thickness remaining. The size 41 patella fit the best. This was oriented and then clamped into position. The lugs were drilled. The trial components were removed. The final components were opened on the back table. The periosteal and capsular tissues, especially posteriorly, around the knee were then systematically injected with a periarticular cocktail consisting of 50cc 0.25% Marcaine, 30mg Ketorolac, 20cc of Exparal and 50cc of injectable saline. The knee was thoroughly irrigated with a pulse lavage and dried. Irrisept was also used to irrigate the tissues. On the back table, with the implants opened, the cement was mixed. One batch of high viscosity cement was prepared with vacuum assistance. After the cement was ready a small amount was placed on the cut surface of the patella and the patellar button was clamped into position and held. While the cement was hardening, the cementless knee components were placed. Starting with the tibial component, the tibia was subluxed anteriorly and the lug holes of the component were lined up. The tibia was then impacted with an impactor and mallet until the tibial component was in contact with the tibia. The final polyethylene component was inserted. Then, the femoral component was inserted. The lug holes were aligned and the component was impacted into position. The knee was irrigated with Irrisept chlorhexadine solution. This was allowed to sit in the knee for 3 minutes. After the cement had finally cured, approximately 15min, the clamp was removed from the patella and the knee was taken through range of motion. The patella was tracking with a no-thumbs technique. The capsule was then reapproximated with a No. 1 Vicryl at multiple locations. The capsule was finally closed with a No. 2 Stratafix, barbed suture. The second dosing of 1g TXA was started. Deep tissues were then reapproximated with 0 Vicryl and 2-0 Vicryl. The skin was closed with a running 3-0 Monocryl in a subcuticular fashion. This was reinforced with skin glue. A Mepilex silver dressing was applied along with a [id number] ANDER wrap. A CryoCuff was applied. Gustavo was transferred to the hospital stretcher without difficulty an suffering no apparent complication. He has a good prognosis. Physical therapy will start today and without restrictions, weight-bearing as tolerated. Aspirin 81mg BID will be used for DVT prophylaxis.
--- NOTE | 2021-04-12 11:59 | PT.INIE ---
Date of service: 04/12/21 Time of Service: 11:59 PT Notes Visit Reasons: Right TKA and Right Hip Injection Physical Therapy Day Surgery Initial Evaluation Date: 04/12/2021 Referring Doctor: Reanna Saleem MD PT Orders: PT CONSULT: S/P Ortho Surgery Precautions: WBAT on the R LE with AD. Patient Profile/Admitting Diagnosis: Gustavo is a 65-year-old male with degenerative joint disease of the right knee and osteoarthritis of the R hip and is S/P R total knee arthroplasty and R hip injection on postoperative day 0. PMHX: Medical History Atypical pneumonia Chronic cough short course of abx; if not cleared, suggest inhaled steroid (he is leary of po steroid, due to eye disease) Degenerative joint disease of right hip Social History/Home Situation: Lives with in a private home with 2 steps to enter with B rails. Independent with all aspects of ADLs prior to surgery. Uses a walking stick for long distance community ambulation. No falls in the past 12 months. Caregiver for who has Parkinson's Disease. Equipment Owned/DME: FWW, walking stick, bilateral axillary crutches Subjective: Pleasant and cooperative. Reported dizziness after bed to bathroom ambulation which required a seated rest. Reports feeling fatigued, mildly ill, and warm after walking activity which he thinks may be from the 2 doses of oxycodone he got prior to PT consult. Nurse Mayelin aware. Objective: General Observation: Cryocuff on R knee. ANDER wraps to R LE. Mental Status: Alert and oriented as to person, place, time, and purpose Pain: None ROM: Right Lower Extremity: Hip flexion WFL. Hip abduction WFL. Knee flexion about 20 degrees to 90 degrees. Knee extension about -20 degrees ankle dorsiflexion WFL. Ankle plantarflexion WFL. Left Lower Extremity: Hip flexion WFL. Hip abduction WFL. Knee flexion WFL. Ankle dorsiflexion WFL. Ankle plantarflexion WFL. Strength: Right Lower Extremity: Hip flexors 4/5. Hip abductors 4/5. Knee flexors 3-/5. Knee extensors 3-/5. Ankle dorsiflexors 4/5. Ankle plantarflexors 5/5. Left Lower Extremity:Hip flexors 5/5. Hip abductors 5/5. Knee flexors 5/5. Knee extensors 5/5. Ankle dorsiflexors 5/5. Ankle plantarflexors 5/5. Sensation: Intact as to pain and light touch in B LE Bed Mobility/Transfers: Supine to sit standby assist Sit to stand contact-guard assist Stand to sit standby assist Bed to chair standby assist Gait: Instructed patient on level surface ambulation using a walker for 25 feet + 25 feet with step-to gait pattern. Initially was favoring R knee but with cueing was able to do more weight bearing on the R LE. Did report dizziness after walking from bedside to bathroom and standing about 2-3 minutes by the sink to wash hands. Stairs: Negotiated 6 x 4 inch steps while holding onto bilateral rails using step-to gait pattern requiring contact-guard assist. Reported increased ill-feeling and fatigue which he atributes to taking the Oxycodone. Balance: Static Sitting: Normal Dynamic Sitting: Normal Static Standing: Fair Dynamic Standing: Fair Special Tests: Mobility Limitations Standardized Measure [facility] AM-PAC 6 clicks Basic Mobility Inpatient Short Form: Raw Score: 2311% deficit CMS Score: Informed Consent/Education: Patient instructed in purpose of PT consult. Packet containing TKA exercise protocol has been given to patient. Education and training on initial set of exercises that can be done at home have been completed with patient. Assessment: Gustavo is a 65-year-old male with degenerative joint disease of the right knee and osteoarthritis of the R hip and is S/P R total knee arthroplasty and R hip injection on postoperative day 0. Requires use of a front wheel walker to maximize independence with mobility ADL performance and reduce fall risk at home. Acute mild adverse reaction to pain pill intake limited today's performance with ambulation. Patient presents with clinical signs and symptoms consistent with current/admitting diagnoses that have resulted to mobility limitations, gait instability, generalized weakness, and impairment of motor control as demonstrated by the following impairment level findings: 1. Decreased strength to right knee major muscle groups 2. Impaired standing balance 3. Limitation of joint range of motion in right knee Impairments are contributing to the following functional limitations: 1. Inability to safely ambulate without assistive device 2. Increase completion time for mobility ADL performance 3. Increased fall risk Patient is assessed as a 33527 moderate complexity based on the following: History: 65-year-old male with impairment level findings, functional limitations, and past medical history as indicated above Examination: Demonstrable impairment in strength, balance, and mobility level with underlying impairments and functional limitations as documented above Presentation: Evolving Decision Makin moderate Goals: N/A. PT evaluation and 1-2 treatment sessions only for functional mobility training using recommended AD and for HEP instruction. Plan of Care/Treatment Plan: N/A. PT evaluation and 1-2 treatment session only for functional mobility training using recommended AD and for HEP instruction. DISCHARGE RECOMMENDATIONS: Home when medically cleared by orthopedic surgeon. Outpatient PT services in order to regain independent community ambulation skills without an assistive device. TREATMENT CODE/TIME: 74715 x 30 minutes, 10478 x 27 minutes beginning at 11:59 AM. Thank you for the opportunity to participate in the care of this patient. Leona Bledsoe PT, DPT, CLT [facility] [place], [place]
== END 2021-04-12 15:35 | disposition home or self-care (01) ==
PROVIDERS: PCP Family Medicine; Visit Provider Student in an Organized Health Care Education/Training Program
PROC: (CPT 27447; principal; 2021-04-12 08:00)
PROC: (CPT 27447; 2021-04-12 08:00)
DX: M17.11 Unilateral primary osteoarthritis, right knee (principal); M16.11 Unilateral primary osteoarthritis, right hip
CPT/HCPCS: 27447; 20610; C1776; 97162; 97530; 73501; J0690; J1040; J1885; J2001; J2250; J2405

== ENCOUNTER 2021-04-25 11:47 | Outpatient (CLI) | payer MEDICARE, BC, SELFPAY ==
--- NOTE | 2021-04-25 08:45 | DI.RAD_ITS ---
Exam(s) XR STANDING ALIGNMENT EXAM: XR STANDING ALIGNMENT CLINICAL HISTORY: 1ST POST OP R TKA. TECHNIQUE: 2D digital imaging was performed. COMPARISON: CR XR STANDING ALIGNMENT from 04/05/2021 FINDINGS: There has been interval placement of a right knee prosthesis. Satisfactory position and alignment of the components of the prosthesis. No fracture or loosening evident. There is moderate narrowing of the medial compartment of the opposite-left knee. Lateral compartment of the left knee exhibits nor mal height. There are mild degenerative changes in the left hip. Ankles appear unremarkable. Talar domes unrema rkable. No osseous lesions. IMPRESSION: DATA REPOSITORY: RADIATION DOSE DELIVERED:
--- NOTE | 2021-04-25 08:45 | DI.RAD_ITS ---
Exam(s) XR KNEE RT 1V EXAM: XR KNEE RT 1V CLINICAL HISTORY: 1st post oip R TKA. TECHNIQUE: 2D digital imaging was performed. COMPARISON: CR XR KNEE RT 4V AP,LAT,VIKKI,PAT from 07/29/2020 FINDINGS: Single lateral view reveals satisfactory position of the components of the prosthesis. No fracture o r loosening evident. IMPRESSION: DATA REPOSITORY: RADIATION DOSE DELIVERED:
== END 2021-04-25 11:48 | disposition home or self-care (01) ==
LOC: DIORS 11:47
PROVIDERS: PCP Family Medicine; Referring Provider Family Medicine; Visit Provider Physician Assistant Surgical
DX: Z96.651 Presence of right artificial knee joint (principal); Z47.1 Aftercare following joint replacement surgery; Z47.89 Encounter for other orthopedic aftercare; M16.11 Unilateral primary osteoarthritis, right hip; G89.18 Other acute postprocedural pain
CPT/HCPCS: 73560; 77073

== ENCOUNTER → 2021-05-26 08:54 | Outpatient (BNVA) | payer MEDICARE, BC, SELFPAY | PROVIDERS: PCP Family Medicine; Referring Provider Family Medicine; Visit Provider Student in an Organized Health Care Education/Training Program | DX: Z47.1 Aftercare following joint replacement surgery (principal); Z96.651 Presence of right artificial knee joint ==

== ENCOUNTER 2021-06-28 11:15 | Outpatient (RCR) | payer MEDICARE, BC, SELFPAY ==
[2021-06-28] MEDS: Acetaminophen 325 MG TAB 650 MG PO (11:07)
[2021-06-28] MEDS: Normal Saline Flush 10 ML SYR IVP (11:11)
[2021-06-28 11:16] LABS: Abs Immature Grans 0.02 10^3/uL (0.0-0.06); Absolute Basophil Count 0.04 10^3/uL (0.0-0.2); Absolute Eosinophil Count 0.17 10^3/uL (0.0-0.7); Absolute Lymphocyte Count 1.59 10^3/uL (1.2-3.4); Absolute Monocyte Count 0.48 10^3/uL (0.1-0.8); Absolute Neutrophil Count 3.68 10^3/uL (1.2-6.7); Basophils % 0.7; Eosinophils % 2.8; HCT 43.6 % (40.0-50.0); Immature Grans % 0.3; Lymphocytes % 26.6; MCH 28.4 pg (27.0-33.0); MCHC 32.1 % (32.0-36.0); MCV 88.4 fL (80-95); MPV 8.6 fL (8.0-11.0); Neutrophils % 61.6; Nucleated RBC 0 %; Platelet Count 215 10^3/uL (130-400); RBC 4.93 10^6/uL (4.36-5.78); RDW-SD 38.8 fL; WBC 5.98 10^3/uL (4.4-10.8)
[2021-06-28 11:36] LABS: ALT 22 U/L (16-63); AST 15 U/L (15-37); Albumin 3.8 g/dL (3.4-5.0); Alkaline Phosphatase 86 U/L (46-116); Bilirubin, Direct 0.1 mg/dL (0.0-0.2); Bilirubin, Total 0.4 mg/dL (0.2-1.0); C-Reactive Protein 0.39 mg/dL (0.0-0.3)
[2021-06-28] MEDS: VEDOLIZUMAB 300 MG in Normal Saline 250 ML 500 MG IVPB (11:42)
== END 2021-06-28 23:59 | disposition home or self-care (01) ==
LOC: INF 11:15
PROVIDERS: Internal Medicine Gastroenterology; PCP Family Medicine; Visit Provider Nurse Practitioner Family
DX: K50.111 Crohn's disease of large intestine with rectal bleeding (principal); Z79.899 Other long term (current) drug therapy
CPT/HCPCS: 36415; 80076; 96365; 85025; 86140; J3380

== ENCOUNTER 2021-07-07 10:23 | Outpatient (CLI) | payer MEDICARE, BC, SELFPAY ==
--- NOTE | 2021-07-07 09:45 | DI.RAD_ITS ---
Exam(s) XR KNEE RT 3V AP,LAT,VIKKI EXAM: XR KNEE RT 3V AP,LAT,VIKKI CLINICAL HISTORY: eval R TKA pain/swelling. TECHNIQUE: 2D digital imaging was performed. COMPARISON: CR XR KNEE RT 1V from 04/25/2021 FINDINGS: Stable position of the components of the prosthesis. No fracture or loosening evident. No radiograp hic evidence of osteomyelitis. IMPRESSION: DATA REPOSITORY: RADIATION DOSE DELIVERED:
== END 2021-07-07 10:24 | disposition home or self-care (01) ==
LOC: DIORS 10:24
PROVIDERS: PCP Family Medicine; Referring Provider Family Medicine; Visit Provider Student in an Organized Health Care Education/Training Program
DX: T84.84XA Pain due to internal orthopedic prosthetic devices, implants and grafts, initial encounter (principal); Z96.651 Presence of right artificial knee joint; Z47.1 Aftercare following joint replacement surgery
CPT/HCPCS: 20610; 73562

== ENCOUNTER 2021-07-08 01:14 | Outpatient (CLI) | payer MEDICARE, BC, SELFPAY ==
[2021-07-08 14:08] LABS: ESR 15 mm/hr (0-20); HCT 43.5 % (40.0-50.0); HGB 13.9 g/dL (13.5-17.5); MCH 28.1 pg (27.0-33.0); MCV 88.1 fL (80-95); MPV 8.7 fL (8.0-11.0); Platelet Count 231 10^3/uL (130-400); RBC 4.94 10^6/uL (4.36-5.78); RDW 12.2 % (11.8-14.1); RDW-SD 39.4 fL; WBC 7.13 10^3/uL (4.4-10.8)
== END 2021-07-08 01:15 | disposition home or self-care (01) ==
LOC: LBO 01:14
PROVIDERS: PCP Family Medicine; Visit Provider Student in an Organized Health Care Education/Training Program
DX: T84.84XA Pain due to internal orthopedic prosthetic devices, implants and grafts, initial encounter (principal); Z96.651 Presence of right artificial knee joint; K52.9 Noninfective gastroenteritis and colitis, unspecified
CPT/HCPCS: 36415; 85027; 85652; 86140

== ENCOUNTER 2021-07-11 03:49 | Outpatient (CLI) | payer MEDICARE, BC, SELFPAY ==
[2021-07-11 10:18] LABS: Source Nasal/Nares
[2021-07-11 21:46] LABS: COVID-19 PCR Negative (Negative)
== END 2021-07-11 03:50 | disposition home or self-care (01) ==
LOC: LBO 03:49
PROVIDERS: PCP Family Medicine; Visit Provider Student in an Organized Health Care Education/Training Program
DX: Z20.822 Contact with and (suspected) exposure to COVID-19 (principal); Z01.818 Encounter for other preprocedural examination
CPT/HCPCS: 87635

== ENCOUNTER 2021-07-12 10:20 | Day surgery (SDC) | payer MEDICARE, BC, SELFPAY ==
[2021-07-12] VITALS (9 sets, daily range): BP systolic 147–185; BP diastolic 83–100; PULSE 58–88; RESP 12–17; TEMP 36.2–36.9; O2SAT 96–100; BMI 31.6
[2021-07-12] MEDS: Lactated Ringers 1,000 ML 80 ML IV (11:10)
--- NOTE | 2021-07-12 12:04 | W.PM.DSUDISC ---
Discharge Plan Disposition Patient Disposition: HOME Condition: Good Discharge Details Reason For Visit: R Knee Arthroscopy Attending Provider: Delfin Sanchez Primary Care Provider: Monty Canales Home Meds and New Rx's Prescriptions: New acetaminophen 500 mg tablet 1,000 mg PO TID Qty: 90 RF: 0 ibuprofen 600 mg tablet 600 mg PO TID PRN (Reason: pain) Qty: 90 RF: 0 oxycodone 5 mg tablet 5 mg PO Q8H MDD 15mg PRN (Reason: pain) Qty: 10 RF: 0 Continued Entyvio 300 mg recon soln 300 mg IV Q8W RF: 0 cholecalciferol (vitamin D3) 2,000 unit tablet 2,000 unit PO DAILY RF: 0 pravastatin 20 mg tablet 20 mg PO QPM Qty: 90 RF: 4 hydrochlorothiazide 12.5 mg tablet 12.5 mg PO DAILY Qty: 90 RF: 4 Flovent HFA 110 mcg/actuation HFA aerosol inhaler 1 puff inhalation BID RF: 0 terbinafine HCl 250 mg tablet 250 mg PO DAILY Qty: 30 RF: 0 montelukast 10 mg tablet 10 mg PO DAILY Qty: 90 RF: 3 fluticasone propionate 50 mcg/actuation [place],Suspension 1 spray INTRANASAL DAILY RF: 0 Discontinued acetaminophen [Tylenol Extra Strength] 500 mg tablet 500 mg PO Q6H PRNQty: 90 RF: 0 Discharge Instructions Stand Alone Forms: Daniel Knee Arthroscopy Referrals: Delfin Sanchez MD [ [facility] STAFF PHYSICIAN] - Equipment/Supplies: Partial Weight Bearing Crutches Activity:: Activity as Tolerated Remove Dressings/Wound Care:: 72 hours Shower/Bathe:: 72 hours Diet:: As Tolerated Discharge Orders Discharge Orders: Discharge Order (Routine); Ordered 07/12/21 Ordered By: Satish Álvarez DS: Diagnosis Discharge Diagnosis (1) Painful total knee replacement, right: Status: Acute
--- NOTE | 2021-07-12 12:42 | W.ANESPRE ---
General Info Date of Service Date Performed: 07/12/21 Height: 6 ft 2 in Weight: 112 kg Body Mass Index (BMI): 31.6 Surgical Procedure: Operation Date: 07/12/21 14:10 Proposed Procedures Side Surgeon p Knee Arthroscopy Synovectomy w/ Aspiration and Synovial Biopsy Right Delfin Sanchez MD Actual Procedures Side Surgeon p Knee Arthroscopy Synovectomy w/ Aspiration and Synovial Biopsy Right Delfin Sanchez MD Meds Allergies and Home Medications Allergies Allergy/AdvReac Type Severity Reaction Status Date / Time Penicillins Allergy Unknown RASH, SOB Verified 07/12/21 10:39 Home Medication Medication Instructions Recorded vedolizumab 300 mg intravenous 300 mg IV Q8W 05/31/18 solution cholecalciferol (vitamin D3) 50 2,000 unit PO DAILY 08/12/19 mcg (2,000 unit) tablet fluticasone propionate 110 1 puff INHALATION BID 07/29/20 mcg/actuation HFA aerosol inhaler hydrochlorothiazide 12.5 mg tablet 12.5 mg PO DAILY #90 tab-cap 08/13/20 pravastatin 20 mg tablet 20 mg PO QPM #90 tab-cap 08/13/20 fluticasone propionate 1 spray INTRANASAL DAILY 08/24/20 terbinafine HCl 250 mg tablet 250 mg PO DAILY #30 tab 04/06/21 montelukast 10 mg tablet 10 mg PO DAILY #90 tab 07/05/21 acetaminophen 1,000 mg PO TID #90 tab 07/12/21 ibuprofen 600 mg PO TID PRN #90 tab 07/12/21 oxycodone 5 mg PO Q8H PRN #10 tab MDD 15mg 07/12/21 Current Visit Medications: Current Medications Generic Name Dose Route Start Last Admin Trade Name Freq PRN Reason Stop Dose Admin Acetaminophen 650 mg 07/12/21 12:02 Acetaminophen 325 Mg Tab PO Q4H PRN PRN Ringer's Solution 1,000 mls @ 80 mls/hr 07/12/21 06:00 07/12/21 11:10 IV 08/10/21 23:59 80 mls/hr INFUSION WALTER Administration Cefazolin Sodium/Dextrose 2 gm in 50 mls @ 100 mls/hr 07/12/21 06:00 Ancef Duplex IVPB 07/12/21 16:00 PREOP WALTER IV Miscellaneous Supplies 1 each 07/12/21 06:00 Iv Access IV 08/10/21 23:59 DIRECTED WALTER Oxycodone HCl 5 mg 07/12/21 12:02 Oxycodone 5 Mg Tab PO Q3H PRN PRN Pain Sodium Chloride 0 ml 07/12/21 06:00 Normal Saline Flush 10 Ml Syr IV 08/10/21 23:59 PRN PRN Sodium Chloride 0 ml 07/12/21 06:00 Normal Saline 10 Ml Vial IJ 08/10/21 23:59 DIRECTED PRN Sterile Water 0 ml 07/12/21 06:00 Water,Injection,Sterile 10 Ml Vial IJ 08/10/21 23:59 DIRECTED PRN PFSH Active Problems Active Problems: Problem Status Onset Code Painful total knee replacement, right T84.84XA, Z96.651 History of total right knee replacement 04/12/21 Z96.651 Colitis 07/10/17 K52.9 Diverticulosis 09/08/14 K57.90 Essential hypertension 06/30/13 I10 Generalized osteoarthrosis M15.9 Generalized osteoarthrosis M15.9 Hyperlipidemia E78.5 Impaired fasting glucose R73.01 Lung nodule seen on imaging study 09/29/14 R91.1 Primary osteoarthritis of right knee 08/28/16 M17.11 Proctitis 08/27/17 K62.89 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 Migraine G43.909 Family history of Lowery syndrome 07/28/14 Z80.0 S/P left knee arthroscopy 08/24/20 Z98.890 Stress due to spouse with dementia Z63.79 Hearing loss H91.90 Sensorineural hearing loss of both ears H90.3 Heart murmur R01.1 Degenerative joint disease of right hip M16.11 Chronic cough R05 Atypical pneumonia J18.9 Medical History Medical History Asthma Tobacco Smoking/Tobacco Use Status: Never Passive smoking exposure: Yes Second hand exposure: Yes Alcohol Alcohol Intake: current Alcohol intake frequency: a few times a month Alcohol type: beer Substance Use Substance use: Never Substance use type: does not use Vital Signs and Lab Results Vital Signs Most Recent Vital Signs in EMR: Most Recent Vital Signs Temp Pulse Resp BP Pulse Ox 36.9 C 59 L 16 147/86 H 100 07/12/21 10:35 07/12/21 10:35 07/12/21 10:35 07/12/21 10:35 07/12/21 10:35 Lab Results Blood Type / Crossmatch: No Data to Display Complete Blood Count: White Blood Count 7.13 10^3/uL (4.4-10.8) 07/08/21 13:41 07/08/21 Red Blood Count 4.94 10^6/uL (4.36-5.78) 07/08/21 13:41 07/08/21 Hemoglobin 13.9 g/dL (13.5-17.5) 07/08/21 13:41 07/08/21 Hematocrit 43.5 % (40.0-50.0) 07/08/21 13:41 07/08/21 Platelet Count 231 10^3/uL (130-400) 07/08/21 13:41 07/08/21 Complete Metabolic Panel: Albumin 3.8 g/dL (3.4-5.0) 06/28/21 11:00 06/28/21 C-Reactive Protein 0.40 mg/dL (0.0-0.3) H 07/08/21 13:41 07/08/21 Liver Function Panel: Alanine Aminotransferase (ALT/SGPT) 22 U/L (16-63) 06/28/21 11:00 06/28/21 Aspartate Amino Transf (AST/SGOT) 15 U/L (15-37) 06/28/21 11:00 06/28/21 Coagulation Panel: No Data to Display Cardiac Panel: No Data to Display Arterial Blood Gas: No Data to Display Venous Blood Gas: No Data to Display Pancreas Panel: No Data to Display Thyroid Panel: No Data to Display Infectious Disease: Coronavirus (COVID-19)(PCR) Negative (Negative) 07/11/21 09:42 07/11/21 Coronavirus 2019 Source Nasal/Nares 07/11/21 09:42 07/11/21 Blood Cultures: No Data to Display Toxicology Panel: No Data to Display Anesthesia Assessment and Plan Anesthesia History Personal History: No History of Anesthesia Complications Family History: No Family History of Anesthesia Complications Exercise Tolerance Exercise Tolerance: Metabolic Equivalents>4 Pertinent Negatives Pertinent Negatives: No Symptoms of GERD, No Major Cardiovascular Symptoms or Complaints, No Major Pulmonary Symptoms or Complaints and No History of CVA/TIA Cardiac & Pulmonary Exam Cardiac Exam: Normal S1/S2 Heart Sounds Pulmonary Exam: Clear Bilateral Breath Sounds Implantable Cardiac Device Does patient have a Pacemaker or an ICD?: No Airway Exam Known Difficult Airway: No Mallampati Class: 2 Mouth Opening: Normal (> 3cm) Thyromental Distance: Greater than 3 cm Neck Range of Motion: Full ROM Neck Circumference: Normal Teeth Condition: Normal Dentition ASA Classification ASA Score: ASA 2 Emergency Case?: No NPO Status NPO Status: NPO Clears >2 hours, Solids >8 hours Anesthesia Plan Resuscitation Status: Full Code Anesthesia Technique: General Anesthesia Airway Planned: LMA Monitors Used: Standard Monitors
[2021-07-12] MEDS: ceFAZolin 2 GM/50 ML BAG IVPB (13:01)
[2021-07-12] MEDS: Bupivacaine 0.5% Pres-Free 30 ML VIAL (13:40)
[2021-07-12] MEDS: fentaNYL 100 MCG/2 ML VIAL IVP ×2 (14:16→14:26)
[2021-07-12] MEDS: Normal Saline Flush 10 ML SYR IV (14:16)
[2021-07-12 14:46] LABS: Clarity Clear; Mononuclear Cells 51 %; Nucleated Cells 257 uL (0); Polynuclear Cells 49 %
[2021-07-12] MEDS: oxyCODONE 5 MG TAB PO (15:14)
--- NOTE | 2021-07-12 17:03 | W.ANESPOSTOP ---
Postoperative Evaluation Date, Time and Location Date Performed: 07/12/21 Time Performed: 17:03 Patient Location: Day Surgery Unit Vital Signs Most Recent Imported Vital Signs: Most Recent Vital Signs Temp Pulse Resp BP Pulse Ox 36.3 C L 68 16 174/100 H 99 07/12/21 15:35 07/12/21 15:35 07/12/21 15:35 07/12/21 15:35 07/12/21 15:35 Pain Score Most Recent Pain Score: Most Recent Pain Score Pain Level 3 07/12/21 15:35 Assessment Mental Status: Awake (Alert & Oriented to Patient Baseline) Airway and Respiratory Function: Patent airway with normal (patient baseline) respiratory exam Cardiovascular Function: Hemodynamically Stable Hydration Status: Adequately Hydrated Nausea & Vomiting: No Nausea or Vomiting Pain: Pt. Denies Any Pain Peripheral Nerve Block: Patient did not receive a nerve block Postoperative Comments:: Patient discharged home without an anesthesia provider seeing them. Per RN patient was stable to preoperative, pain controlled.
--- NOTE | 2021-07-13 06:29 | W.PM.OP ---
Date of service: 07/12/21 Time of Service: 14:05 Operative Note Operative Note DATE OF PROCEDURE: 07/12/21 PRE-OP DIAGNOSIS: Painful right knee replacement, right knee effusion POST-OP DIAGNOSIS: same PROCEDURE: Arthroscopic Synovectomy of anterior and suprapatellar compartments, aspiration of right knee SURGEON: Delfin Sanchez ANESTHESIA TYPE: General LMA/ETT Refer to Anesthesia Record ESTIMATED BLOOD LOSS: 0 PATHOLOGY: none sent TOURNIQUET TIME: 0 COMPLICATIONS: None Patient was transported to: PACU Patient's condition: stable Indications: I have seen Gustavo in clinic for pain, stiffness, and recurrent effusion following knee replacement surgery. Aspiration was attempted in the office but not successful due to pain. Given the recurrence of the swelling and the pain I was concerned about infection as well as recurrent synovitis, especially given his history of Crohn's. Thus, I recommended we proceed with an arthroscopic synovectomy along with a knee aspiration. I reviewed the risks of the procedure to include, but not limited to, bleeding, infection, pain, continued stiffness, recurrence, blood clot. Despite these risks, the patient elected to proceed. Findings: There was an abundant amount of clear joint fluid. I aspirated 60 cc of clear joint fluid and sent this off to the lab for analysis of cell count, culture, and alpha defensin. There was dense synovium seen within the knee which had some amount of inflammatory changes to it. However, no necrotic or apparently infectious material. There was dense scarring seen over the medial aspect the knee which was released to recreate the suprapatellar space. A generalized synovectomy was performed focusing in the suprapatellar space as well as medially and laterally and anteriorly. Procedure Description: Gustavo was greeted in the preoperative holding area where the correct side was identified and marked. The consent was reviewed with the patient and signed. The history and physical was updated. All questions were answered. He was taken back to the operating room. The patient was placed into the supine position on the operating room table. All bony prominences were well padded. Prophylactic antibiotics in the form of Cefazolin were administered. The right leg was then prepped with Chloraprep and draped in a standard fashion with stockinette and extremity drape. A timeout to confirm correct identity, side and site, procedure, allergies, anesthesia, and medical concerns was performed. The leg was placed into a pneumatic leg fisher, [id number]. An aspiration of the right knee was first performed. I was able to withdrawal nearly 60 cc of joint fluid. This was sent to the lab for cell count, culture, and alpha defensin. I then proceeded with the arthroscopy. A standard lateral portal was made at the lateral border of the patella tendon in line with the inferior pole of the patella, soft spot. The skin and deep tissue was incised sharply and the blunt trochar was inserted atraumatically. At this point had visualization of the femoral component. A superolateral portal was then established with spinal needle localization just superior and lateral to the patella. A knife was taken down through the skin and soft tissue to enter the knee joint. Starting in the superior compartment above the femoral component and anterior to the femur I released all scarring between the anterior femoral synovium and the overlying extensor mechanism. This was taken through all of any noticeable scar tissue until the superior patellar pouch was fully released and mobile. This resection was carried out mostly with electrocautery as well as shaver. Once this was released fully from lateral to medial superiorly I then continue working down the lateral medial gutters. However, the amount of inflammatory change was not that impressive. There was some scarring but I did not feel it was necessary to do a complete synovectomy posteriorly in the gutters himself. Thus, I continued with working around the patella and the suprapatellar space and around the anterior compartment of the knee both medially and laterally from a lateral viewing portal and superolateral working portal. Any inflammatory tissue was removed either with the electrocautery or with a shaver. I also removed any soft tissue seen around the patella. The arthroscope was brought back into the suprapatellar pouch and the leg was in full extension. The knee was thoroughly irrigated with the arthroscopic fluid on high flow and pressure. Inflow was stopped and excess fluid was removed. The wounds were closed with 4-0 Nylon. 0.25% bupivacaine was injected around the portal sites and into the knee. The wounds were dressed with Xeroform, 4x4 gauze, ABD pad, Kerlix and an ANDER wrap. A cryo-cuff was applied. The patient tolerated the procedure well and was returned to the Same Day Surgery area in a stable condition suffering no known complication..
== END 2021-07-12 16:40 | disposition home or self-care (01) ==
PROVIDERS: PCP Family Medicine; Visit Provider Student in an Organized Health Care Education/Training Program
PROC: (CPT 29870; principal; 2021-07-12 14:00)
DX: M25.461 Effusion, right knee (principal); M65.861 Other synovitis and tenosynovitis, right lower leg
CPT/HCPCS: 20610; 29876; 87070; 87205; 89051; J0690; J1100; J1885; J2001; J2405; J3010

== ENCOUNTER → 2021-07-25 08:57 | Outpatient (BNVA) | payer MEDICARE, BC, SELFPAY | PROVIDERS: PCP Family Medicine; Referring Provider Family Medicine | DX: Z47.1 Aftercare following joint replacement surgery (principal); Z96.651 Presence of right artificial knee joint; T84.84XA Pain due to internal orthopedic prosthetic devices, implants and grafts, initial encounter ==

== ENCOUNTER → 2021-08-22 12:54 | Outpatient (BNVA) | payer MEDICARE, BC, SELFPAY | PROVIDERS: PCP Family Medicine; Referring Provider Family Medicine; Visit Provider Student in an Organized Health Care Education/Training Program | DX: T84.84XA Pain due to internal orthopedic prosthetic devices, implants and grafts, initial encounter (principal); Z96.651 Presence of right artificial knee joint ==

== ENCOUNTER 2021-08-23 11:00 | Outpatient (RCR) | payer MEDICARE, BC, SELFPAY ==
[2021-08-23] MEDS: Acetaminophen 325 MG TAB 650 MG PO (10:15)
[2021-08-23] MEDS: Loratidine 10 MG TAB PO (10:15)
[2021-08-23] MEDS: Normal Saline Flush 10 ML SYR IVP (10:16)
[2021-08-23] MEDS: VEDOLIZUMAB 300 MG in Normal Saline 250 ML 500 MG IVPB (10:55)
[2021-08-23 11:29] LABS: Hemoglobin A1C 6.5 % (<5.7)
[2021-08-23 11:32] LABS: Calculated LDL 76 mg/dL (<100); Cholesterol 147 mg/dL (<200); HDL Cholesterol 51 mg/dL (40-60); Triglyceride 100 mg/dL (<150)
== END 2021-08-29 23:59 | disposition home or self-care (01) ==
LOC: INF 11:00
PROVIDERS: PCP Family Medicine; Visit Provider Nurse Practitioner Family
DX: K50.90 Crohn's disease, unspecified, without complications (principal); R73.9 Hyperglycemia, unspecified; E78.5 Hyperlipidemia, unspecified
CPT/HCPCS: 36415; 80061; 96365; 83036; J3380

== ENCOUNTER → 2021-10-03 13:01 | Outpatient (BNVA) | payer MEDICARE, BC, SELFPAY | PROVIDERS: PCP Family Medicine; Referring Provider Family Medicine; Visit Provider Student in an Organized Health Care Education/Training Program | DX: T84.84XD Pain due to internal orthopedic prosthetic devices, implants and grafts, subsequent encounter (principal); Z96.651 Presence of right artificial knee joint; Z47.1 Aftercare following joint replacement surgery ==

== ENCOUNTER 2021-10-18 01:46 | Outpatient (RCR) | payer MEDICARE, BC, SELFPAY ==
[2021-10-18] MEDS: Loratidine 10 MG TAB PO (10:15)
[2021-10-18] MEDS: Acetaminophen 325 MG TAB 650 MG PO (10:15)
[2021-10-18] MEDS: Normal Saline Flush 10 ML SYR IVP (10:18)
[2021-10-18 10:23] LABS: HCT 45.3 % (40.0-50.0); HGB 14.5 g/dL (13.5-17.5); MCV 87.5 fL (80-95); MPV 8.8 fL (8.0-11.0); Platelet Count 213 10^3/uL (130-400); RBC 5.18 10^6/uL (4.36-5.78); RDW 13.2 % (11.8-14.1); RDW-SD 42.4 fL; WBC 6.63 10^3/uL (4.4-10.8)
[2021-10-18] MEDS: VEDOLIZUMAB 300 MG in Normal Saline 250 ML 500 MG IVPB (10:43)
[2021-10-18 10:48] LABS: ALT 26 U/L (16-63); AST 18 U/L (15-37); Albumin 3.9 g/dL (3.4-5.0); Alkaline Phosphatase 80 U/L (46-116); Bilirubin, Direct 0.1 mg/dL (0.0-0.2); Bilirubin, Total 0.4 mg/dL (0.2-1.0); C-Reactive Protein 0.14 mg/dL (0.0-0.3)
== END 2021-10-27 23:59 | disposition home or self-care (01) ==
LOC: INF 01:46
PROVIDERS: PCP Family Medicine; Visit Provider Nurse Practitioner Family
DX: D50.9 Iron deficiency anemia, unspecified (principal)
CPT/HCPCS: 36415; 80076; 85027; 96365; 86140; J3380

== ENCOUNTER 2021-12-12 02:58 | Outpatient (RCR) | payer MEDICARE, BC, SELFPAY ==
[2021-12-12] MEDS: Normal Saline Flush 10 ML SYR IVP (10:54)
[2021-12-12] MEDS: VEDOLIZUMAB 300 MG in Normal Saline 250 ML 500 MG IVPB (11:04)
[2021-12-12 11:24] LABS: Hemoglobin A1C 6.3 % (<5.7)
== END 2021-12-27 23:59 | disposition home or self-care (01) ==
LOC: INF 02:58
PROVIDERS: PCP Family Medicine; Visit Provider Nurse Practitioner Family
DX: D50.9 Iron deficiency anemia, unspecified (principal); R73.9 Hyperglycemia, unspecified
CPT/HCPCS: 36415; 96365; 83036; J3380

== ENCOUNTER 2022-02-07 02:03 | Outpatient (RCR) | payer MEDICARE, BC, SELFPAY ==
[2022-02-06] MEDS: Normal Saline Flush 10 ML SYR IVP (10:43)
[2022-02-06] MEDS: Acetaminophen 325 MG TAB 650 MG PO (10:54)
[2022-02-06] MEDS: Loratidine 10 MG TAB PO (10:55)
[2022-02-06 10:56] LABS: HGB 14.1 g/dL (13.5-17.5); MCH 29.1 pg (27.0-33.0); MCHC 33.6 % (32.0-36.0); MCV 87 fL (80-95); MPV 8.9 fL (8.0-11.0); Platelet Count 202 10^3/uL (130-400); RBC 4.85 10^6/uL (4.36-5.78); RDW 13.1 % (11.8-14.1); RDW-SD 41.4 fL; WBC 6.11 10^3/uL (4.4-10.8)
[2022-02-06] MEDS: VEDOLIZUMAB 300 MG in Normal Saline 250 ML 500 MG IVPB (11:10)
[2022-02-06 11:21] LABS: ALT 20 U/L (16-63); AST 16 U/L (15-37); Albumin 3.7 g/dL (3.4-5.0); Alkaline Phosphatase 79 U/L (46-116); Bilirubin, Direct 0.1 mg/dL (0.0-0.2); Bilirubin, Total 0.5 mg/dL (0.2-1.0); Total Protein 7.6 g/dL (6.4-8.2)
== END 2022-02-26 23:59 | disposition home or self-care (01) ==
LOC: INF 02:03
PROVIDERS: PCP Family Medicine; Visit Provider Nurse Practitioner Family
DX: K50.90 Crohn's disease, unspecified, without complications (principal); Z00.00 Encounter for general adult medical examination without abnormal findings
CPT/HCPCS: 36415; 80076; 85027; 96365; 86140; J3380

== ENCOUNTER 2022-04-10 03:01 | Outpatient (RCR) | payer MEDICARE, BC, SELFPAY ==
[2022-04-10] MEDS: Loratidine 10 MG TAB PO (10:42)
[2022-04-10] MEDS: Acetaminophen 325 MG TAB 650 MG PO (10:43)
[2022-04-10] MEDS: Normal Saline Flush 10 ML SYR IVP (10:43)
[2022-04-10] MEDS: VEDOLIZUMAB 300 MG in Normal Saline 250 ML 500 MG IVPB (11:17)
== END 2022-04-28 23:59 | disposition home or self-care (01) ==
LOC: INF 03:01
PROVIDERS: PCP Family Medicine; Visit Provider Nurse Practitioner Family
DX: K50.90 Crohn's disease, unspecified, without complications (principal)
CPT/HCPCS: 96365; J3380

== ENCOUNTER 2022-04-17 13:13 | Outpatient (CLI) | payer MEDICARE, BC, SELFPAY ==
--- NOTE | 2022-04-17 12:54 | DI.RAD_ITS ---
Exam(s) XR KNEE RT 3V AP,LAT,VIKKI EXAM: XR KNEE RT 3V AP,LAT,VIKKI CLINICAL HISTORY: ANNUAL F/U R TKA. TECHNIQUE: 2D digital imaging was performed. Three views. COMPARISON: CR XR KNEE RT 3V AP,LAT,VIKKI from 07/07/2021 FINDINGS: BONES: There has been no change in the total knee prosthesis or appearance of the surrounding bone. No acute fracture is present. No bony destructive lesion is seen. JOINTS: The knee is normally aligned. A moderate-sized effusion is seen. SOFT TISSUE: Vascular calcifications. IMPRESSION: No change in TKA. Joint effusion. DATA REPOSITORY: RADIATION DOSE DELIVERED:
== END 2022-04-17 13:14 | disposition home or self-care (01) ==
LOC: DIORS 13:14
PROVIDERS: PCP Family Medicine; Referring Provider Family Medicine; Visit Provider Student in an Organized Health Care Education/Training Program
DX: Z96.651 Presence of right artificial knee joint (principal); T84.84XA Pain due to internal orthopedic prosthetic devices, implants and grafts, initial encounter
CPT/HCPCS: 73562; 99213

== ENCOUNTER → 2022-04-19 01:46 | Outpatient (CLI) | payer MEDICARE, BC, SELFPAY ==
--- NOTE | 2022-04-19 15:05 | DI.CT_ITS ---
Exam(s) CT LOWER EXTREMITY RT WO EXAM: CT LOWER EXTREMITY RT WO CLINICAL HISTORY: PAINFUL TOTAL KNEE REPLACEMENT,RT, ?LOOSENING,T84.84XA,Z96.651. TECHNIQUE: Imaging Protocol: Axial computed tomography images with coronal and sagittal reformatted images were created and reviewed. CONTRAST MATERIAL: None COMPARISON: CR XR KNEE RT 3V AP,LAT,VIKKI from 04/17/2022 FINDINGS: The components of the prosthesis appear well seated with no obvious loosening. No fractures. No yesenia dence of osteomyelitis. There is no abnormal fluid collection in the suprapatellar bursa region with uniform thick wall, elayne uring 4-5 millimeters thickness. This collection does not contain gas bubbles. This collection elayne ures 6 cm wide by 2 cm AP by 7 cm craniocaudal IMPRESSION: No obvious loosening of the prosthesis components. However, there is an abnormal uniformly thick wal led anteriorly located fluid collection in the suprapatellar bursa region, as described above. Corre lation with clinical findings recommended. Cannot exclude the possibly that this is an abscess, desp ite absence of gas therein RADIATION DOSE DELIVERED: 324.21mGy.cm Total DLP DATA REPOSITORY: All CT scans at this facility are submitted to the National Radiology Data Registry (NRDR) Dose Index Registry (DIR) with the [employer] ([employer]). RADIATION OPTIMIZATION: All CT scans at this facility use at least one of these dose optimization te chniques: automated exposure control; mA and/or kV adjustment per patient size (includes targeted exa ms where dose is matched to clinical indication); or iterative reconstruction.
== END ==
PROVIDERS: PCP Family Medicine; Visit Provider Student in an Organized Health Care Education/Training Program
DX: T84.84XA Pain due to internal orthopedic prosthetic devices, implants and grafts, initial encounter (principal); Z96.651 Presence of right artificial knee joint; M71.861 Other specified bursopathies, right knee
CPT/HCPCS: 73700

== ENCOUNTER → 2022-05-01 12:52 | Outpatient (BNVA) | payer MEDICARE, BC, SELFPAY | PROVIDERS: PCP Family Medicine; Referring Provider Family Medicine; Visit Provider Student in an Organized Health Care Education/Training Program | DX: T84.84XA Pain due to internal orthopedic prosthetic devices, implants and grafts, initial encounter (principal); Z96.651 Presence of right artificial knee joint | CPT/HCPCS: 20610 ==

== ENCOUNTER 2022-05-01 16:44 | Outpatient (REF) | payer MEDICARE, BC, SELFPAY ==
[2022-05-01 17:50] LABS: Nucleated Cells 780 uL (0)
[2022-05-14 12:50] LABS: Mononuclear Cells 73 %; Polynuclear Cells 27 %
== END 2022-05-01 16:45 | disposition home or self-care (01) ==
LOC: LBN 16:44
PROVIDERS: PCP Family Medicine; Visit Provider Student in an Organized Health Care Education/Training Program
DX: T84.84XA Pain due to internal orthopedic prosthetic devices, implants and grafts, initial encounter (principal); Z96.651 Presence of right artificial knee joint
CPT/HCPCS: 87070; 87205; 89051

== ENCOUNTER 2022-06-05 02:26 | Outpatient (RCR) | payer MEDICARE, BC, SELFPAY ==
[2022-06-05] MEDS: Acetaminophen 325 MG TAB 650 MG PO (10:41)
[2022-06-05] MEDS: Normal Saline Flush 10 ML SYR IVP (10:42)
[2022-06-05] MEDS: Loratidine 10 MG TAB PO (10:42)
[2022-06-05 11:01] LABS: Abs Immature Grans 0.01 10^3/uL (0.0-0.06); Absolute Basophil Count 0.04 10^3/uL (0.0-0.2); Absolute Eosinophil Count 0.14 10^3/uL (0.0-0.7); Absolute Lymphocyte Count 1.67 10^3/uL (1.2-3.4); Absolute Monocyte Count 0.43 10^3/uL (0.1-0.8); Absolute Neutrophil Count 3.13 10^3/uL (1.2-6.7); Basophils % 0.7; Eosinophils % 2.6; HCT 43.8 % (40.0-50.0); HGB 14.6 g/dL (13.5-17.5); Immature Grans % 0.2; Lymphocytes % 30.8; MCH 29.3 pg (27.0-33.0); MCHC 33.3 % (32.0-36.0); MCV 88 fL (80-95); MPV 8.8 fL (8.0-11.0); Monocytes % 7.9; Neutrophils % 57.8; Platelet Count 214 10^3/uL (130-400); RBC 4.99 10^6/uL (4.36-5.78); RDW 12.5 % (11.8-14.1); RDW-SD 40.3 fL; WBC 5.42 10^3/uL (4.4-10.8)
[2022-06-05] MEDS: VEDOLIZUMAB 300 MG in Normal Saline 250 ML 500 MG IVPB (11:15)
[2022-06-05 11:21] LABS: ALT 25 U/L (16-63); AST 21 U/L (15-37); Alkaline Phosphatase 82 U/L (46-116); Bilirubin, Direct 0.1 mg/dL (0.0-0.2); Bilirubin, Total 0.5 mg/dL (0.2-1.0); C-Reactive Protein 0.24 mg/dL (0.0-0.3); Total Protein 8.2 g/dL (6.4-8.2)
== END 2022-06-28 23:59 | disposition home or self-care (01) ==
LOC: INF 02:26
PROVIDERS: Internal Medicine Gastroenterology; PCP Family Medicine; Visit Provider Family Medicine
DX: Z79.899 Other long term (current) drug therapy (principal); K50.111 Crohn's disease of large intestine with rectal bleeding
CPT/HCPCS: 36415; 80076; 96365; 85025; 86140; J3380

== ENCOUNTER 2022-08-04 02:15 | Outpatient (RCR) | payer MEDICARE, BC, SELFPAY ==
[2022-08-04] MEDS: Loratidine 10 MG TAB PO (10:28)
[2022-08-04] MEDS: Normal Saline Flush 10 ML SYR IVP (10:28)
[2022-08-04] MEDS: Acetaminophen 325 MG TAB 650 MG PO (10:28)
[2022-08-04] MEDS: VEDOLIZUMAB 300 MG in Normal Saline 250 ML 500 MG IVPB (11:19)
== END 2022-08-29 23:59 | disposition home or self-care (01) ==
LOC: INF 02:15
PROVIDERS: PCP Family Medicine; Visit Provider Family Medicine
DX: K50.90 Crohn's disease, unspecified, without complications (principal)
CPT/HCPCS: 96365; J3380

== ENCOUNTER 2022-10-02 02:35 | Outpatient (RCR) | payer MEDICARE, BC, SELFPAY ==
[2022-10-02] MEDS: Loratidine 10 MG TAB PO (10:30)
[2022-10-02] MEDS: Acetaminophen 325 MG TAB 650 MG PO (10:30)
[2022-10-02] MEDS: Normal Saline Flush 10 ML SYR IVP (10:30)
[2022-10-02 10:52] LABS: HCT 43.6 % (40.0-50.0); HGB 14.5 g/dL (13.5-17.5); MCH 28.9 pg (27.0-33.0); MCHC 33.3 % (32.0-36.0); MCV 87 fL (80-95); Platelet Count 181 10^3/uL (130-400); RBC 5.01 10^6/uL (4.36-5.78); RDW 12.7 % (11.8-14.1); RDW-SD 40.2 fL; WBC 5.06 10^3/uL (4.4-10.8)
[2022-10-02] MEDS: VEDOLIZUMAB 300 MG in Normal Saline 250 ML 500 MG IVPB (11:01)
[2022-10-02 11:09] LABS: ALT 24 U/L (16-63); AST 17 U/L (15-37); Alkaline Phosphatase 80 U/L (46-116); Bilirubin, Direct 0.1 mg/dL (0.0-0.2); Bilirubin, Total 0.4 mg/dL (0.2-1.0); C-Reactive Protein 0.12 mg/dL (0.0-0.3); Total Protein 7.7 g/dL (6.4-8.2)
== END 2022-10-27 23:59 | disposition home or self-care (01) ==
LOC: INF 02:35
PROVIDERS: PCP Family Medicine; Visit Provider Family Medicine
DX: K50.90 Crohn's disease, unspecified, without complications (principal)
CPT/HCPCS: 36415; 80076; 85027; 96365; 86140; J3380

== ENCOUNTER 2022-11-27 04:18 | Outpatient (RCR) | payer MEDICARE, BC, SELFPAY ==
[2022-11-27] MEDS: Acetaminophen 325 MG TAB 650 MG PO (10:38)
[2022-11-27] MEDS: Loratidine 10 MG TAB PO (10:38)
[2022-11-27] MEDS: Normal Saline Flush 10 ML SYR IVP (10:38)
[2022-11-27] MEDS: VEDOLIZUMAB 300 MG in Normal Saline 250 ML 500 MG IVPB (11:06)
== END 2022-12-27 23:59 | disposition home or self-care (01) ==
LOC: INF 04:18
PROVIDERS: PCP Family Medicine; Visit Provider Family Medicine
DX: K50.90 Crohn's disease, unspecified, without complications (principal)
CPT/HCPCS: 96365; J3380

== ENCOUNTER 2023-01-22 02:52 | Outpatient (RCR) | payer MEDICARE, BC, SELFPAY ==
[2023-01-22] MEDS: Acetaminophen 325 MG TAB 650 MG PO (10:10)
[2023-01-22] MEDS: Loratidine 10 MG TAB PO (10:10)
[2023-01-22] MEDS: VEDOLIZUMAB 300 MG in Normal Saline 250 ML 500 MG IVPB (10:51)
[2023-01-22] MEDS: Normal Saline Flush 10 ML SYR IVP (10:51)
[2023-01-22 10:52] LABS: Abs Immature Grans 0.01 10^3/uL (0.0-0.06); Absolute Basophil Count 0.04 10^3/uL (0.0-0.2); Absolute Eosinophil Count 0.12 10^3/uL (0.0-0.7); Absolute Lymphocyte Count 1.38 10^3/uL (1.2-3.4); Absolute Monocyte Count 0.38 10^3/uL (0.1-0.8); Absolute Neutrophil Count 3.47 10^3/uL (1.2-6.7); Basophils % 0.7; Eosinophils % 2.2; HCT 44.5 % (40.0-50.0); HGB 15.1 g/dL (13.5-17.5); Immature Grans % 0.2; Lymphocytes % 25.6; MCH 29.6 pg (27.0-33.0); MCHC 33.9 % (32.0-36.0); MCV 87 fL (80-95); MPV 9.1 fL (8.0-11.0); Neutrophils % 64.3; Platelet Count 192 10^3/uL (130-400); RDW 12.5 % (11.8-14.1); RDW-SD 40.6 fL
[2023-01-22 11:13] LABS: ALT 25 U/L (16-63); AST 18 U/L (15-37); Alkaline Phosphatase 79 U/L (46-116); Bilirubin, Direct 0.1 mg/dL (0.0-0.2); Bilirubin, Total 0.7 mg/dL (0.2-1.0); C-Reactive Protein 0.13 mg/dL (0.0-0.3); Total Protein 8.3 g/dL (6.4-8.2)
== END 2023-01-26 23:59 | disposition home or self-care (01) ==
LOC: INF 02:52
PROVIDERS: PCP Family Medicine; Visit Provider Family Medicine
DX: K50.90 Crohn's disease, unspecified, without complications (principal)
CPT/HCPCS: 36415; 80076; 96365; 85025; 86140; J3380

== ENCOUNTER 2023-03-19 04:24 | Outpatient (RCR) | payer MEDICARE, BC, SELFPAY ==
[2023-03-19] MEDS: Acetaminophen 325 MG TAB 650 MG PO (10:46)
[2023-03-19] MEDS: Loratidine 10 MG TAB PO (10:46)
[2023-03-19] MEDS: Normal Saline Flush 10 ML SYR IVP (11:30)
[2023-03-19] MEDS: VEDOLIZUMAB 300 MG in Normal Saline 250 ML 500 MG IVPB (11:30)
== END 2023-03-29 23:59 | disposition home or self-care (01) ==
LOC: INF 04:24
PROVIDERS: PCP Family Medicine; Visit Provider Family Medicine
DX: K50.90 Crohn's disease, unspecified, without complications (principal)
CPT/HCPCS: 96365; J3380

== ENCOUNTER 2023-05-17 08:33 | Outpatient (CLI) | payer MEDICARE, BC, SELFPAY ==
--- NOTE | 2023-05-17 08:15 | DI.RAD_ITS ---
Exam(s) XR KNEE RT 4V AP,LAT,VIKKI,PAT EXAM: XR KNEE RT 4V AP,LAT,VIKKI,PAT CLINICAL HISTORY: RIGHT KNEE PAIN. TECHNIQUE: 2D digital imaging was performed. Four images were obtained. Merchant's, AP, lateral and oblique views were obtained. COMPARISON: CR XR KNEE RT 3V AP,LAT,VIKKI from 04/17/2022 FINDINGS: BONES: There are stable post operative changes right total knee replacement present. No fracture or dislocation. JOINTS: The orthopedic hardware is in good position. No evidence of hardware loosening. There is a joint effusion. SOFT TISSUE: Atherosclerosis. IMPRESSION: 1. Stable postoperative changes. 2. Small joint effusion. DATA REPOSITORY: RADIATION DOSE DELIVERED:
== END 2023-05-17 08:34 | disposition home or self-care (01) ==
LOC: DIORS 08:34
PROVIDERS: PCP Family Medicine; Referring Provider Family Medicine; Visit Provider Student in an Organized Health Care Education/Training Program
DX: T84.84XA Pain due to internal orthopedic prosthetic devices, implants and grafts, initial encounter (principal); Z96.651 Presence of right artificial knee joint
CPT/HCPCS: 99214; 73564

== ENCOUNTER 2023-05-21 03:23 | Outpatient (RCR) | payer MEDICARE, BC, SELFPAY ==
[2023-05-21] MEDS: Normal Saline Flush 10 ML SYR IVP (10:42)
[2023-05-21] MEDS: Acetaminophen 325 MG TAB 650 MG PO (10:42)
[2023-05-21] MEDS: Loratidine 10 MG TAB PO (10:42)
[2023-05-21] MEDS: VEDOLIZUMAB 300 MG in Normal Saline 250 ML 500 MG IVPB (11:30)
[2023-05-21 11:54] LABS: HCT 43.2 % (40.0-50.0); HGB 14.3 g/dL (13.5-17.5); MCH 28.8 pg (27.0-33.0); MCHC 33.1 % (32.0-36.0); MCV 87 fL (80-95); MPV 8.9 fL (8.0-11.0); Platelet Count 194 10^3/uL (130-400); RBC 4.96 10^6/uL (4.36-5.78); RDW 12.8 % (11.8-14.1); RDW-SD 40.7 fL; WBC 5.36 10^3/uL (4.4-10.8)
== END 2023-05-29 23:59 | disposition home or self-care (01) ==
LOC: INF 03:23
PROVIDERS: PCP Family Medicine; Visit Provider Family Medicine
DX: K50.90 Crohn's disease, unspecified, without complications (principal)
CPT/HCPCS: 36415; 80076; 85027; 96365; 86140; J3380

== ENCOUNTER 2023-07-16 02:02 | Outpatient (RCR) | payer MEDICARE, BC, SELFPAY ==
[2023-07-16] MEDS: VEDOLIZUMAB 300 MG in Normal Saline 250 ML 500 MG IVPB (10:57)
[2023-07-16] MEDS: Normal Saline Flush 10 ML SYR IVP (10:57)
[2023-07-16 11:14] LABS: ALT 22 U/L (16-63); AST 18 U/L (15-37); Albumin 3.9 g/dL (3.4-5.0); Alkaline Phosphatase 71 U/L (46-116); Bilirubin, Direct 0.1 mg/dL (0.0-0.2); Bilirubin, Total 0.4 mg/dL (0.2-1.0); C-Reactive Protein 0.19 mg/dL (0.0-0.3); Total Protein 8.1 g/dL (6.4-8.2)
== END 2023-07-29 23:59 | disposition home or self-care (01) ==
LOC: INF 02:02
PROVIDERS: PCP Family Medicine; Visit Provider Family Medicine
DX: K50.90 Crohn's disease, unspecified, without complications (principal)
CPT/HCPCS: 80076; 96365; 86140; J3380

== ENCOUNTER 2023-09-10 02:38 | Outpatient (RCR) | payer MEDICARE, BC, SELFPAY ==
[2023-09-10] MEDS: Loratidine 10 MG TAB PO (10:40)
[2023-09-10] MEDS: Acetaminophen 325 MG TAB 650 MG PO (10:40)
[2023-09-10] MEDS: Normal Saline Flush 10 ML SYR IVP (10:41)
[2023-09-10] MEDS: VEDOLIZUMAB 300 MG in Normal Saline 250 ML 500 MG IVPB (11:10)
== END 2023-09-27 23:59 | disposition home or self-care (01) ==
LOC: INF 02:38
PROVIDERS: PCP Family Medicine; Visit Provider Family Medicine
DX: K50.90 Crohn's disease, unspecified, without complications (principal)
CPT/HCPCS: 96365; J3380

== ENCOUNTER 2023-11-05 03:51 | Outpatient (RCR) | payer MEDICARE, BC, SELFPAY ==
[2023-11-05] MEDS: Loratidine 10 MG TAB PO (10:24)
[2023-11-05] MEDS: Acetaminophen 325 MG TAB 650 MG PO (10:24)
[2023-11-05] MEDS: Normal Saline Flush 10 ML SYR IVP (10:26)
[2023-11-05] MEDS: VEDOLIZUMAB 300 MG in Normal Saline 250 ML 500 MG IVPB (10:49)
[2023-11-05 10:53] LABS: HCT 43.8 % (40.0-50.0); HGB 14.5 g/dL (13.5-17.5); MCH 29.7 pg (27.0-33.0); MCHC 33.1 % (32.0-36.0); MCV 90 fL (80-95); MPV 9.3 fL (8.0-11.0); Platelet Count 202 10^3/uL (130-400); RBC 4.89 10^6/uL (4.36-5.78); RDW 12.7 % (11.8-14.1); WBC 5.57 10^3/uL (4.4-10.8)
[2023-11-05 11:09] LABS: ALT 27 U/L (16-63); AST 21 U/L (15-37); Albumin 3.8 g/dL (3.4-5.0); Alkaline Phosphatase 76 U/L (46-116); Bilirubin, Direct 0.1 mg/dL (0.0-0.2); Bilirubin, Total 0.5 mg/dL (0.2-1.0); C-Reactive Protein < 0.50 mg/dL (<or=0.5); Total Protein 7.9 g/dL (6.4-8.2)
== END 2023-11-27 23:59 | disposition home or self-care (01) ==
LOC: INF 03:51
PROVIDERS: Internal Medicine Gastroenterology; PCP Family Medicine; Visit Provider Family Medicine
DX: K50.90 Crohn's disease, unspecified, without complications (principal)
CPT/HCPCS: 36415; 80076; 85027; 96365; 86140; J3380

== ENCOUNTER 2023-12-31 04:22 | Outpatient (RCR) | payer MEDICARE, BC, SELFPAY ==
[2023-12-31] MEDS: Acetaminophen 325 MG TAB 650 MG PO (10:28)
[2023-12-31] MEDS: Normal Saline Flush 10 ML SYR IVP (10:28)
[2023-12-31] MEDS: VEDOLIZUMAB 300 MG in Normal Saline 250 ML 500 MG IVPB (11:03)
== END 2024-01-27 23:59 | disposition home or self-care (01) ==
LOC: INF 04:22
PROVIDERS: PCP Family Medicine; Visit Provider Family Medicine
DX: K50.90 Crohn's disease, unspecified, without complications (principal)
CPT/HCPCS: 96365; J3380

== ENCOUNTER 2024-02-25 01:48 | Outpatient (RCR) | payer MEDICARE, BC, SELFPAY ==
[2024-02-25] MEDS: Normal Saline Flush 10 ML SYR IVP (10:42)
[2024-02-25] MEDS: Acetaminophen 325 MG TAB 650 MG PO (10:42)
[2024-02-25 11:07] LABS: HCT 43.3 % (40.0-50.0); HGB 14.4 g/dL (13.5-17.5); MCH 29.8 pg (27.0-33.0); MCHC 33.3 % (32.0-36.0); MCV 90 fL (80-95); Platelet Count 183 10^3/uL (130-400); RBC 4.84 10^6/uL (4.36-5.78); RDW 12.6 % (11.8-14.1); RDW-SD 41.4 fL; WBC 6.25 10^3/uL (4.4-10.8)
[2024-02-25 11:28] LABS: ALT 23 U/L (16-63); AST 18 U/L (15-37); Albumin 3.8 g/dL (3.4-5.0); Alkaline Phosphatase 74 U/L (46-116); Bilirubin, Direct 0.1 mg/dL (0.0-0.2); Bilirubin, Total 0.51 mg/dL (0.2-1.0); Total Protein 7.9 g/dL (6.4-8.2)
[2024-02-25 11:29] LABS: C-Reactive Protein < 0.50 mg/dL (<or=0.5)
[2024-02-25] MEDS: VEDOLIZUMAB 300 MG in Normal Saline 250 ML 500 MG IVPB (11:34)
== END 2024-02-27 23:59 | disposition home or self-care (01) ==
LOC: INF 01:48
PROVIDERS: PCP Family Medicine; Visit Provider Family Medicine
DX: K50.90 Crohn's disease, unspecified, without complications (principal)
CPT/HCPCS: 36415; 80076; 85027; 96365; 86140; J3380

== ENCOUNTER 2024-04-22 02:01 | Outpatient (RCR) | payer MEDICARE, BC, SELFPAY ==
[2024-04-22] MEDS: Acetaminophen 325 MG TAB 650 MG PO (10:22)
[2024-04-22] MEDS: Loratidine 10 MG TAB PO (10:22)
[2024-04-22] MEDS: VEDOLIZUMAB 300 MG in Normal Saline 250 ML 500 MG IVPB (10:58)
[2024-04-22] MEDS: Normal Saline Flush 10 ML SYR IVP (10:58)
== END 2024-04-28 23:59 | disposition home or self-care (01) ==
LOC: INF 02:01
PROVIDERS: PCP Family Medicine; Visit Provider Family Medicine
DX: K50.111 Crohn's disease of large intestine with rectal bleeding (principal)
CPT/HCPCS: 96365; J3380

== ENCOUNTER → 2024-06-05 10:02 | Outpatient (BNVA) | payer MEDICARE, BC, SELFPAY | PROVIDERS: PCP Family Medicine; Referring Provider Family Medicine; Visit Provider Physician Assistant Surgical | DX: J45.909 Unspecified asthma, uncomplicated (principal) | CPT/HCPCS: 99215 ==

== ENCOUNTER 2024-06-17 02:46 | Outpatient (RCR) | payer MEDICARE, BC, SELFPAY ==
[2024-06-17] MEDS: Acetaminophen 325 MG TAB 650 MG PO (10:25)
[2024-06-17] MEDS: Normal Saline Flush 10 ML SYR IVP ×2 (10:25→11:14)
[2024-06-17] MEDS: VEDOLIZUMAB 300 MG in Normal Saline 250 ML 500 MG IVPB (11:13)
[2024-06-17 11:56] LABS: Abs Immature Grans 0.01 10^3/uL (0.0-0.06); Absolute Basophil Count 0.02 10^3/uL (0.0-0.2); Absolute Neutrophil Count 3.46 10^3/uL (1.2-6.7); Basophils % 0.4 %; Eosinophils % 1.9 %; HCT 44.2 % (40.0-50.0); HGB 14.4 g/dL (13.5-17.5); Immature Grans % 0.2 %; Lymphocytes % 27.8 %; MCH 29.6 pg (27.0-33.0); MCHC 32.6 % (32.0-36.0); MCV 91 fL (80-95); MPV 8.9 fL (8.0-11.0); Monocytes % 5.6 %; Neutrophils % 64.1 %; Platelet Count 188 10^3/uL (130-400); RBC 4.87 10^6/uL (4.36-5.78); RDW 12.5 % (11.8-14.1); RDW-SD 41.5 fL; WBC 5.39 10^3/uL (4.4-10.8)
[2024-06-18 10:26] LABS: IgE 3 IU/mL (<158)
== END 2024-06-28 23:59 | disposition home or self-care (01) ==
LOC: INF 02:46
PROVIDERS: Physician Assistant Surgical; PCP Family Medicine; Visit Provider Family Medicine
DX: K50.111 Crohn's disease of large intestine with rectal bleeding (principal)
CPT/HCPCS: 36415; 96365; 82785; 85025; J3380

== ENCOUNTER 2024-08-12 03:15 | Outpatient (RCR) | payer MEDICARE, BC, SELFPAY ==
[2024-08-12] MEDS: Loratidine 10 MG TAB PO (10:12)
[2024-08-12] MEDS: Acetaminophen 325 MG TAB 650 MG PO (10:12)
[2024-08-12] MEDS: VEDOLIZUMAB 300 MG in Normal Saline 250 ML 500 MG IVPB (10:23)
[2024-08-12 10:41] LABS: HCT 45.6 % (40.0-50.0); HGB 14.9 g/dL (13.5-17.5); MCH 29.5 pg (27.0-33.0); MCHC 32.7 % (32.0-36.0); MCV 90 fL (80-95); MPV 9.1 fL (8.0-11.0); Platelet Count 187 10^3/uL (130-400); RBC 5.05 10^6/uL (4.36-5.78); RDW 13.1 % (11.8-14.1); RDW-SD 43.3 fL; WBC 10.73 10^3/uL (4.4-10.8)
[2024-08-12 11:03] LABS: ALT 26 U/L (16-63); AST 25 U/L (15-37); Albumin 3.9 g/dL (3.4-5.0); Alkaline Phosphatase 83 U/L (46-116); Bilirubin, Total 0.64 mg/dL (0.2-1.0); Total Protein 8.2 g/dL (6.4-8.2)
[2024-08-12 11:10] LABS: C-Reactive Protein < 0.50 mg/dL (<or=0.5)
[2024-08-12 11:16] LABS: Bilirubin, Direct 0.2 mg/dL (0.0-0.2)
== END 2024-08-29 23:59 | disposition home or self-care (01) ==
LOC: INF 03:15
PROVIDERS: Internal Medicine Gastroenterology; PCP Family Medicine; Visit Provider Family Medicine
DX: K50.111 Crohn's disease of large intestine with rectal bleeding (principal)
CPT/HCPCS: 80076; 85027; 96365; 86140; J3380

== ENCOUNTER 2024-10-07 02:42 | Outpatient (RCR) | payer MEDICARE, BC, SELFPAY ==
[2024-10-07] MEDS: Acetaminophen 325 MG TAB 650 MG PO (10:13)
[2024-10-07] MEDS: VEDOLIZUMAB 300 MG in Normal Saline 250 ML 500 MG IVPB (10:45)
[2024-10-07] MEDS: Normal Saline Flush 5 ML SYR IVP (10:45)
== END 2024-10-27 23:59 | disposition home or self-care (01) ==
LOC: INF 02:42
PROVIDERS: PCP Family Medicine; Visit Provider Family Medicine
DX: K50.111 Crohn's disease of large intestine with rectal bleeding (principal)
CPT/HCPCS: 96365; J3380

== ENCOUNTER 2024-10-29 03:11 | Outpatient (CLI) | payer MEDICARE, BC, SELFPAY ==
[2024-10-29 08:44] LABS: Anion Gap 10.8 mmol/L (3-11); CO2 30.2 mmol/L (21.0-32.0); CREATININE 0.9 mg/dL (0.70-1.30); Calculated LDL 84 mg/dL (<100); Chloride 102 mmol/L (98-107); Cholesterol 162 mg/dL (<200); Estimated GFR 91.88 (mL/min/1.73m2); HDL Cholesterol 63 mg/dL (>or=40); Potassium 4.1 mmol/L (3.5-5.1); Sodium 143 mmol/L (136-145); Triglyceride 78 mg/dL (<150)
== END 2024-10-29 03:12 | disposition home or self-care (01) ==
LOC: LBO 03:12
PROVIDERS: PCP Family Medicine; Visit Provider Family Medicine
DX: E78.5 Hyperlipidemia, unspecified (principal); E87.1 Hypo-osmolality and hyponatremia; I10 Essential (primary) hypertension
CPT/HCPCS: 36415; 80051; 80061; 82565

== ENCOUNTER 2024-12-02 01:19 | Outpatient (RCR) | payer MEDICARE, BC, SELFPAY ==
[2024-12-02 10:19] VITALS: BP 152/85; PULSE 55; RESP 20; TEMP 36.6; O2SAT 96
[2024-12-02] MEDS: Acetaminophen 325 MG TAB 650 MG PO (10:21)
[2024-12-02] MEDS: VEDOLIZUMAB 300 MG in Normal Saline 250 ML 500 MG IVPB (10:40)
[2024-12-02] MEDS: Normal Saline Flush 5 ML SYR IVP (11:22)
== END 2024-12-27 23:59 | disposition home or self-care (01) ==
LOC: INF 01:19
PROVIDERS: PCP Family Medicine; Visit Provider Family Medicine
DX: K50.111 Crohn's disease of large intestine with rectal bleeding (principal)
CPT/HCPCS: 96365; J3380

== ENCOUNTER 2025-01-27 03:38 | Outpatient (RCR) | payer MEDICARE, BC, SELFPAY ==
[2025-01-27] MEDS: Acetaminophen 325 MG TAB 650 MG PO (09:51)
[2025-01-27] MEDS: Normal Saline Flush 10 ML SYR IVP (10:01)
[2025-01-27 10:19] LABS: HCT 42.2 % (40.0-50.0); HGB 14.3 g/dL (13.5-17.5); MCH 29.7 pg (27.0-33.0); MCHC 33.9 % (32.0-36.0); MCV 88 fL (80-95); MPV 8.8 fL (8.0-11.0); Platelet Count 185 10^3/uL (130-400); RBC 4.82 10^6/uL (4.36-5.78); RDW 12.5 % (11.8-14.1); RDW-SD 40.0 fL; WBC 6.08 10^3/uL (4.4-10.8)
[2025-01-27] MEDS: VEDOLIZUMAB 300 MG in Normal Saline 250 ML 500 MG IVPB (10:37)
[2025-01-27 10:41] LABS: ALT 25 U/L (16-63); AST 21 U/L (15-37); Albumin 4.0 g/dL (3.4-5.0); Alkaline Phosphatase 71 U/L (46-116); Bilirubin, Direct 0.2 mg/dL (0.0-0.2); Bilirubin, Total 0.6 mg/dL (0.2-1.0); Total Protein 8.0 g/dL (6.4-8.2)
[2025-01-27 10:42] LABS: C-Reactive Protein < 0.50 mg/dL (<or=0.5)
== END 2025-01-27 15:00 | disposition home or self-care (01) ==
LOC: INF 03:38
PROVIDERS: Internal Medicine Gastroenterology; PCP Family Medicine; Visit Provider Family Medicine
DX: K50.111 Crohn's disease of large intestine with rectal bleeding (principal)
CPT/HCPCS: 36415; 80076; 85027; 96365; 86140; J3380

== ENCOUNTER → 2025-02-24 14:53 | Outpatient (BNVA) | payer MEDICARE, BC, SELFPAY | PROVIDERS: PCP Family Medicine; Referring Provider Family Medicine; Visit Provider Internal Medicine Pulmonary Disease | DX: R91.1 Solitary pulmonary nodule (principal); J30.9 Allergic rhinitis, unspecified; J45.40 Moderate persistent asthma, uncomplicated | CPT/HCPCS: 99214 ==

== ENCOUNTER 2025-03-24 02:38 | Outpatient (CLI) | payer MEDICARE, BC, SELFPAY ==
[2025-03-24] MEDS: Normal Saline Flush 10 ML SYR IVP (10:04)
[2025-03-24] MEDS: Acetaminophen 325 MG TAB 650 MG PO (10:04)
[2025-03-24] MEDS: VEDOLIZUMAB 300 MG in Normal Saline 250 ML 500 MG IVPB (10:37)
== END 2025-03-24 02:39 | disposition home or self-care (01) ==
LOC: INF 02:39
PROVIDERS: PCP Family Medicine; Visit Provider Family Medicine
DX: K50.111 Crohn's disease of large intestine with rectal bleeding (principal)
CPT/HCPCS: 96365; J3380

== ENCOUNTER 2025-05-19 00:33 | Outpatient (CLI) | payer MEDICARE, BC, SELFPAY ==
[2025-05-19] MEDS: Acetaminophen 325 MG TAB 650 MG PO (09:58)
[2025-05-19] MEDS: Normal Saline Flush 10 ML SYR IVP (09:59)
[2025-05-19] MEDS: VEDOLIZUMAB 300 MG in Normal Saline 250 ML 500 MG IVPB (10:25)
== END 2025-05-19 00:34 | disposition home or self-care (01) ==
LOC: INF 00:33
PROVIDERS: PCP Family Medicine; Visit Provider Family Medicine
DX: K50.111 Crohn's disease of large intestine with rectal bleeding (principal)
CPT/HCPCS: 96365; J3380

== ENCOUNTER → 2025-06-04 10:01 | Outpatient (BNVA) | payer MEDICARE, BC, SELFPAY | PROVIDERS: PCP Family Medicine; Referring Provider Family Medicine; Visit Provider Physician Assistant Surgical | DX: J45.40 Moderate persistent asthma, uncomplicated (principal); R91.1 Solitary pulmonary nodule | CPT/HCPCS: 99214 ==

== ENCOUNTER 2025-07-14 01:04 | Outpatient (CLI) | payer MEDICARE, BC, SELFPAY ==
[2025-07-14] MEDS: Acetaminophen 325 MG TAB 650 MG PO (10:15)
[2025-07-14 10:28] LABS: HCT 42.9 % (40.0-50.0); HGB 14.5 g/dL (13.5-17.5); MCH 29.8 pg (27.0-33.0); MCHC 33.8 % (32.0-36.0); MCV 88 fL (80-95); MPV 8.8 fL (8.0-11.0); Platelet Count 193 10^3/uL (130-400); RBC 4.86 10^6/uL (4.36-5.78); RDW 12.7 % (11.8-14.1); RDW-SD 41.3 fL; WBC 6.23 10^3/uL (4.4-10.8)
[2025-07-14] MEDS: VEDOLIZUMAB 300 MG in Normal Saline 250 ML 500 MG IVPB (10:40)
[2025-07-14] MEDS: Normal Saline Flush 10 ML SYR IVP (10:40)
[2025-07-14 10:58] LABS: C-Reactive Protein < 0.50 mg/dL (<=0.50)
[2025-07-14 11:32] LABS: ALT 18 U/L (10-49); AST 20 U/L (<34); Albumin 4.4 g/dL (3.2-5.0); Alkaline Phosphatase 75 U/L (46-116); Bilirubin, Direct 0.2 mg/dL (<=0.3); Bilirubin, Total 0.6 mg/dL (0.2-1.2); Total Protein 7.7 g/dL (5.7-8.2)
== END 2025-07-14 01:05 | disposition home or self-care (01) ==
LOC: INF 01:04
PROVIDERS: Internal Medicine Gastroenterology; PCP Family Medicine; Visit Provider Nurse Practitioner Family
DX: K50.111 Crohn's disease of large intestine with rectal bleeding (principal)
CPT/HCPCS: 36415; 80076; 85027; 96365; 86140; J3380